=== PATIENT | male | born 1965 | race Caucasian/White ===

== ENCOUNTER 2024-04-24 17:49 | Outpatient (REF) | payer OTHER, SELFPAY ==
--- OUTSIDE RECORDS SUMMARY | 2024-04-24 17:52 | XMS_ITS | Encounter Summary ---
Author Organization [employer] Address [address] [facility] 7[address] [place] [address] Care Team Providers Care Medical Doctor Nuclear Medicine Name Role Phone Alix Diaz Primary Care Provider [phone] Reason for Visit * Reason Onset Date Comments Results 04/23/2024 Appointment Request 04/23/2024 Encounter Details Date Type Department Care Team ([facility] st Contact Info) Description 04/23/2024 Telephone [facility] [address] [place] [address] Alix Diaz ANP [address] [place] [address] Results; Appointment Request Social History Tobacco Use Types Packs/Day Years Used Date Smoking Tobacco: Former Cigarettes Smokeless Tobacco: Never Comments:Stopped smoking 3 y rs ago Alcohol Use Standard Drinks/Week Comments Not Asked 0 (1 standard drink = 0.6 oz pur e alcohol) Depression Answer Date Recorded Patient Health Questionnaire-9 Score 2 06/06/2023 Patient Health Questionnaire-9 Score 2 06/06/2023 Last PHQ-9: Questionnaire Data Not on file 0 06/06/2023 Housing Stability Answer Date Recorded What is your housing situation today? I am not s ure 04/24/[address] you li ve. Do you have problems with any of the following? None of the above 04/24/2024 Food Insecurity Answer Date Recorded Within the past 12 months, y ou worried that your food would run out before you got money to buy more: Sometimes True 2024 Within the past 12 months,th e food you bought just didn't last and you didn't have enough money to get more: Sometimes True 04/24/2024 Transportation Answer Date Recorded In the past 12 months, has l ack of transportation kept you from medical appts, meetings, work or from getting things needed for daily living? I am not sure 04/24/2024 Utilities Answer Date Recorded In the past 12 months, has t he electric, gas, oil or water company threatened to shut off services in your home? I am not sure 04/24/2024 Depression Answer Date Recorded Patient Health Questionnaire-2 Score 1 04/24/2024 Internet Access Answer Date Recorded Internet Access Q1 No 04/24/2024 Internet Access Q2 Not on file 04/24/2024 Sex and Gender Information Value Date Recorded Sex Assigned at Male 01/10/2022 10:16 AM EDT Legal Sex Male 10:16 AM EDT Gender Identity Male 01/10/2022 10:16 AM EDT Sexual Orientation Straight 01/10/2022 10 :16 AM EDT documented as of this encounter Miscellaneous Notes * Telephone Encounter - Kylee Madison RN - 04/23/2024 1:43 PM EST Telephone call returned to pt regarding below message. Pt concerned regarding his microalbumin results (scanned in under media). Also reports bright red blood in stool 2 days ago. Has not happened since then. This has happened before. No dizziness. Abdominal or rectal pain, or blurred vision. Pt has not been seen since November and is diabetic. Overdue for A1C, not on recall. Booked to see PCP tomorrow 04/24/24. Pt agreeable. * Telephone Encounter - Oanh Cunningham - 04/23/2024 1:12 PM EST Tc from pt requesting a call back regarding results (urine albumin-creatine radio) . Received fax from [facility] 04/03. Pt wants to discuss results with pcp. [phone] documented in this encounter Plan of Treatment Not on file documented as of this encounter Visit Diagnoses Not on filedocumented in this encounter Additional Health Concerns Assessment Noted Time PHQ-9 Depression Total Score: 2 06/06/19 24 11:46 AM EDT documented as of this encounter Care Teams Medical Doctor Nuclear Medicine Relationship Specialty Start Date End Date Alix Diaz, ANP [address] [place] [address] PCP - General Family Medicine 11/11/19 documented as of this encounter
--- OUTSIDE RECORDS SUMMARY | 2024-04-24 17:52 | XMS_ITS | Continuity of Care Document ---
Author Organization [facility] Address [address] [facility] [address] [place] [address] Phone Care Team Providers Care Lithographic Proofer Apprentice Name Role Phone Beatrice SAMANO, Jerad Unavailable Unavailable Allergies, Adverse Reactions, Alerts Substance Reaction Status Criticality No Known Allergies Active No Inform ation Medications Medication Instructions Dosage Effective Dates (start - stop) Status Comments Prolensa 0.07 % eye drops instill 1 drop by ophthalmic route every day in operative eye beginning 2 days prior to surgery, then as directed - Active prednisolone acetate 1 % eye drops,suspension instill 1 drop by ophthalmic route 4 times every day in operative eye beginning 2 days prior to surgery, then as directed - Active moxifloxacin 0.5 % eye drops instill 1 drop in the operative eye starting two days before surgery 4 times per day x 1 week and stop. - Active metformin 1,000 mg tablet take 1 tablet by oral route 2 times every day with morning and evening meals 1000 MG - Active Procedures Procedure Date CATARACT SURG W/IOL, 1 STAGE OPHTHALMIC BIOMETRY CATARACT SURG W/IOL, 1 STAGE OPHTHALMIC BIOMETRY OFFICE/OUTPATIENT VISIT, [facility] Advance Directives Directive Yes / No Effective Date File Name No Information Encounters Encounter Description Practice Location Reason(s) For Visit Diagnoses Date Provider Providers Copied on Encounter [facility], [address] [facility], [place], [place], [id number], [place] tel:[phone] [facility] No Information 2 Beatrice Jerad. [address] [place] [address], [facility], . tel: [phone] Referring Provider: Andrae Troncoso, [address] [place] [address], [id number] . tel:[phone] [facility], [address] [place] [address], [id number], tel:[phone] [facility] No Information 1 [place] Jerad. [address] [place] [address], [facility], . tel: [phone] Referring Provider: Andrae Troncoso, [address] [place] [address], [id number] . tel:[phone] OFFICE/OUTPAT IENT VISIT, NEW [facility], [address] [place] [address], [id number], tel:[phone] [facility] Cataract Evaluation per Dr. Zamudio (chief complaint) Combined forms of age-related cataract, bilateralType 2 diabetes mellitus without complication, without long-term current use of insulin 1 Beatrice Jerad. [address] [place] [address], [facility], . tel: [phone] Referring Provider: Andrae Troncoso, [address] [place] [address], [id number] . tel:[phone] [facility], [address] [place] [address], [id number], tel: [phone] [facility] No Information 1 [place] Jerad. [address] [place] [address], [facility], . tel: [phone] Family History Family Member Type Diagnosis Age At Onset Problem Family history of Diabetes m ellitus Problem Family history of Cancer, un known Problem Family history of hypertensi on Problem Family history of Cardiovasc ular disease Payers Payer name Insurance type Covered democrat ID Arash centeno(s) Perfecto OLSON [id number] Social History Type Description Quantity Date Captured [...] BS 94 AMA1c [facility]. Patient speaks no Japanese, she translates for him. Functional Status Date [...]
--- OUTSIDE RECORDS SUMMARY | 2024-04-24 17:52 | XMS_ITS | Encounter Summary ---
Author Organization [email or web address] [facility] Address [address] [facility] 7[address] [place] [address] Care Team Providers Care Electric Bath Attendant Name Role Phone Alix Diaz Primary Care Provider [phone] Reason for Visit * Reason Comments Med Refill Encounter Details Date Type Department Care Team (Late st Contact Info) Description 10/25/2022 Refill [facility] [address] [place] [address] Gustabo Serna FNP MDD (major depressive disorder), recurrent episode, moderate (CMS/HCC) Social History Tobacco Use Types Packs/Day Years Used Date Smoking Tobacco: Never Assessed Depression Answer Date Recorded Patient Health Questionnaire-9 Score 5 10/25/2022 Depression Answer Date Recorded Patient Health Questionnaire-2 Score 0 10/25/2022 Sex and Gender Information Value Date Recorded Sex Assigned at Male 01/10/2022 10:16 AM EDT Legal Sex Male 10:16 AM EDT Gender Identity Male 01/10/2022 10:16 AM EDT Sexual Orientation Straight 01/10/2022 10 :16 AM EDT documented as of this encounter Plan of Treatment Not on file documented as of this encounter Visit Diagnoses Diagnosis MDD (major depressive disorder), recurrent episode, moderate (CMS/HCC) documented in this encounter Additional Health Concerns Assessment Noted Time PHQ-9 Depression Total Score: 5 10/26/19 23 12:48 PM EDT documented as of this encounter Care Teams Electric Bath Attendant Relationship Specialty Start Date End Date Alix Diaz ANP [address] [place] [address] PCP - General Family Medicine 11/11/19 documented as of this encounter
--- OUTSIDE RECORDS SUMMARY | 2024-04-24 17:52 | XMS_ITS | Encounter Summary ---
Author Organization [employer] Address [address] [facility] [address] 7[address] [place] [address] Care Team Providers Care Pick Up Name Role Phone Alix Diaz VAMSI Primary Care Provider [phone] Encounter Details Date Type Department Care Team (Latest Contact Info) Description 04/24/2024 Travel Social History Tobacco Use Types Packs/Day Years [...] documented as of this encounter Care Teams Pick Up Relationship Specialty Start Date End Date Alix Diaz ANP [address] [place] [address] PCP - General Family Medicine 11/11/19 documented as of this encounter
--- OUTSIDE RECORDS SUMMARY | 2024-04-24 17:52 | XMS_ITS | Clinical Summary ---
Author Organization [employer] Address [address] [facility] [address] [place] [address] Care Team Providers Care Food And Beverage Associate Name Role Phone Alix Diaz VAMSI Primary Care Provider Allergies Active Allergy Reactions Criticality Noted Date Comments Ranitidine 04/04/2019 Trazodone Itching 06/16/2021 Medications latanoprost (Xalatan) 0.005 % ophthalmic solutionIndicati ons:Allergic conjunctivitis, unspecified laterality Administer 1 drop into affected eye(s) in the morning. 2.5 mL 5 022 Active TRUEplus Lancets 33G miscIndications: Hyperglycemia, unspecified TEST BLOOD SUGAR THREE TIMES DAILY 100 each 11 023 Active sildenafil (Viagra) 50 MG tabletIndication s:Vasculogenic erectile dysfunction, unspecified vasculogenic erectile dysfunction type Take 1 tablet (50 mg) by mouth Once daily as needed for erectile dysfunction. 20 tablet 1 024 Active Alcohol Swabs (Alcohol Prep) 70 % padsIndications: Type 2 diabetes mellitus with hyperglycemia, with long-term current use of insulin (CMS/HCC) USE DIRECTED 100 each 024 Active doxepin (SINEquan) 150 MG capsule Take 1 capsule (150 mg) by mouth at bedtime. 90 capsule 3 024 Active QUEtiapine (SEROquel) 100 MG tabletIndication s:MDD (major depressive disorder), recurrent episode, moderate (CMS/HCC) Take 1 tablet (100 mg) by mouth at bedtime. 90 tablet 3 024 Active FREESTYLE LITE test stripIndications :IFG (impaired fasting glucose) TEST BLOOD SUGAR THREE TIMES DAILY 100 strip 11 024 Active hydroCHLOROthiaz yolanda (HYDRODiuril) 25 MG tablet TAKE 1 TABLET BY MOUTH EVERY MORNING 90 tablet 3 024 Active lisinopril 40 MG tablet TAKE 1 TABLET BY MOUTH EVERY EVENING 90 tablet 3 024 Active atorvastatin (Lipitor) 10 MG tabletIndication s:Uncontrolled type 2 diabetes mellitus with hyperglycemia (CMS/HCC) Take 1 tablet (10 mg) by mouth at bedtime. 90 tablet 3 024 2024 Active Blood Pressure kitIndications:P rimary hypertension 1 each 2 times daily. 1 kit 024 2024 Active amLODIPine (Norvasc) 5 MG tabletIndication s:Benign essential HTN Take 1 tablet (5 mg) by mouth Once per day. 90 tablet 1 024 Active Multiple Vitamin (Multivitamin) tablet TAKE 1 TABLET BY MOUTH EVERY MORNING WITH FOOD 90 tablet 1 024 Active thiamine (Vitamin B-1) 100 MG tabletIndication s:Alcohol liver damage (CMS/HCC) Take 1 tablet (100 mg) by mouth in the morning. 90 tablet 1 024 Active aspirin (Aspirin Adult Low Strength) 81 MG EC tabletIndication s:Cardiovascular event risk Take 1 tablet (81 mg) by mouth at bedtime. 90 tablet 1 024 Active folic acid (Folvite) 1 MG tabletIndication s:Alcohol liver damage (CMS/HCC) Take 1 tablet (1,000 mcg) by mouth in the morning. 90 tablet 1 024 Active loratadine (Claritin) 10 MG tabletIndication s:Environmental and seasonal allergies Take 1 tablet (10 mg) by mouth at bedtime. 90 tablet 1 024 Active omeprazole (PriLOSEC) [address] capsuleIndicatio ns:Gastroesophag eal reflux disease, unspecified whether esophagitis present TAKE 1 CAPSULE BY MOUTH AT BEDTIME 90 capsule 3 024 Active cholecalciferol (D3-1000) 25 MCG (1000 UT) capsuleIndicatio ns:Vitamin D deficiency TAKE 1 CAPSULE BY MOUTH EVERY EVENING 90 capsule 024 Active metFORMIN XR (Glucophage-XR) 500 MG 24 hr tabletIndication s:Type 2 diabetes mellitus with hyperlipidemia (CMS/HCC) (CMS/HCC) TAKE 1 TABLET BY MOUTH TWICE DAILY IN THE MORNING AND IN THE EVENING WITH FOOD 180 tablet 024 Active Tresiba FlexTouch 100 UNIT/ML injectionIndicat ions:Type 2 diabetes mellitus with hyperlipidemia (CMS/HCC) (CMS/HCC) INJECT 60 UNITS SUBCUTANEOUSLY EVERY MORNING 15 mL 2 025 Active NovoLOG FLEXPEN 100 UNIT/ML penIndications:U ncontrolled type 2 diabetes mellitus with hyperglycemia (CMS/HCC) INJECT 30 UNITS SUBCUTANEOUSLY BEFORE BREAKFAST AND WITH DINNER 30 mL 2 Active Easy Touch Pen [place] 31G X 8 MM miscIndications: Hyperglycemia, unspecified USE DIRECTED TWICE DAILY 100 each 1 025 Active Continuous Glucose Sensor (FreeStyle Bettina 3 Plus Sensor) miscIndications: Uncontrolled type 2 diabetes mellitus with hyperglycemia (CMS/HCC) 1 each every 14 (fourteen) days. (Change every 15 days) 2 each 2 Active polycarbophil (FiberCon) 625 MG tabletIndication s:Constipation, unspecified constipation type Take 1 tablet (625 mg) by mouth Once per day. 30 tablet 025 2025 Active glucose blood (FreeStyle Precision [place] Test) test stripIndications :Uncontrolled type 2 diabetes mellitus with hyperglycemia (CMS/HCC) Use to test blood sugar 5 times daily 100 each 025 2025 Active tamsulosin (Flomax) 0.4 MG 24 hr capsuleIndicatio ns:Gross hematuria Take 1 capsule (0.4 mg) by mouth Once per day. 30 capsule 1 Active Continuous Blood Gluc Cotton Seed Culler (FreeStyle Bettina 2 [place]) deviceIndication s:Uncontrolled type 2 diabetes mellitus with hyperglycemia (CMS/HCC) Scan sensor every 8 hours 1 each 024 2024 Discontinued(T herapy completed) Continuous Blood Gluc Sensor (FreeStyle Bettina 2 Sensor) miscIndications: Uncontrolled type 2 diabetes mellitus with hyperglycemia (CMS/HCC) Apply 1 sensor every 14 days 2 each 024 2024 Discontinued(T herapy completed) glucose blood (FreeStyle Precision [place] Test) test stripIndications :Uncontrolled type 2 diabetes mellitus with hyperglycemia (CMS/HCC) Use to test blood sugar 5 times daily 100 each 024 2024 Discontinued(R eorder (will not trigger notification to Pharmacy)) Easy Touch Pen [place] 31G X 8 MM miscIndications: Hyperglycemia, unspecified USE TWICE DAILY 100 each 1 024 2024 Discontinued insulin aspart (NovoLOG FLEXPEN) 100 UNIT/ML penIndications:U ncontrolled type 2 diabetes mellitus with hyperglycemia (CMS/HCC) Inject 30 Units under the skin with breakfast and with evening meal. 30 mL 2 024 2024 Discontinued Tresiba FlexTouch 100 UNIT/ML injectionIndicat ions:Type 2 diabetes mellitus with hyperlipidemia (CMS/HCC) (CMS/HCC) INJECT 60 UNITS SUBCUTANEOUSLY EVERY MORNING 15 mL 2 024 2024 Discontinued Hospital, Clinic, or Other Facility Administered Medication Ordered Dose Route Frequency Start Date End Date Status Insulin Lispro solution 12 UnitsIndications:Uncontroll ed type 2 diabetes mellitus with hyperglycemia (CMS/HCC) 12 Units SC Once 04/24/2024 04/24/2024 Ended Active Problems Problem Noted Date Diagnosed Date Uncontrolled type 2 diabetes mellitus with hyper glycemia 05/02/2023 MDD (major depressive disord er), recurrent episode, moderate 04/28/2022 Assessment & Plan (06/06/2023 1:11 PM EDT): In remission. Previously with psychotic features. No hallucinations at this time, mood is stable without depression. Continue Seroquel 100 mg at bedtime Continue Doxepin 150 mg at bedtime. Maintain healthy lifestyle. Patient is stable and doing well, and at this time will transition to PCP for further psychiatric medication management. I will be retiring, but if there are questions or concerns over the next few months, patient and/or provider can reach out to me. I have wished him well. He agrees with the plan Assessment & Plan (01/09/2023 9:51 AM EDT): Previously with psychotic features. He now has rare episodes of mild hallucinations, will not attempt to decrease medication further. Continue Seroquel 100 mg at bedtime Continue Doxepin 50 mg to take 1-2 capsules at bedtime. Encouraged to increase exercise and maintain healthy lifestyle. Today 01/09/2023 provider informed pt that I would be retiring within the next year or so, but we would make every effort to ensure smooth transition of care. F/U 2 months. he agrees with the plan. Assessment & Plan (10/25/2022 1:24 PM EDT): In durable remission. Will continue decreasing medication. Now take Seroquel 100 mg at bedtime Continue Doxepin 50 mg to take 1-2 capsules at bedtime. F/U 2-3 months. he agrees with the plan. Assessment & Plan (07/25/2022 3:37 PM EDT): In durable remission. Will now stop morning dose of Seroquel 25 mg. Continue Seroquel 150 mg at bedtime, and Doxepin 50 mg to take 1-2 capsules at bedtime. F/U 3 months. he agrees with the plan. Assessment & Plan (04/28/2022 10:14 AM EST): In durable remission. Happy with current regimen. Continue Doxepin 50 mg to take 1-2 capsules at bedtime, Seroquel 25 mg in am and 150 mg at bedtime. . F/U 2-3 months. he agrees with the plan. Asthma 09/23/2011 Diabetes mellitus type 2, uncomplicated 09/23/19 12 Alcohol dependence 03/13/2004 Hypertension 03/20/2000 Hypercholesterolemia 03/13/1999 Severe recurrent major depression with psychotic features 03/13/1999 Tobacco dependence syndrome 03/13/1999 Encounters Date Type Department Care Team Description 04/24/2024 3:15 PM EST Office Visit [facility] [address] [place] [phone] Alix Diaz ANP Uncontrolled type 2 diabetes mellitus with hyperglycemia (CMS/HCC) (Primary Dx); Constipation, unspecified constipation type; Right flank pain; Screening for colon cancer; Gross hematuria 04/24/2024 Travel 04/24/2024 Telephone [facility] [address] [place] [address] Chanel Carrizales MA chart prep 04/23/2024 Telephone [facility] [address] [place] [address], [place] [phone] Alix Diaz ANP Results; Appointment Request 04/23/2024 Refill [facility] [address] [place] [phone] Joseph, Ally, DESIGN ENGINEERING MANAGER Hyperglycemia, unspecified 04/20/2024 Refill [facility] [address] [place] [phone] Alix Diaz ANP Uncontrolled type 2 diabetes mellitus with hyperglycemia ([facility]) 03/29/2024 Refill [facility] [address] [place] [phone] Alix Diaz ANP Type 2 diabetes mellitus with hyperlipidemia ([facility]) ([facility]) 03/19/2024 Telephone [facility] [address] [place] [phone] Kylee Madison RN Paperwork/Forms 03/04/2024 Refill [facility] [address] [place] [phone] Alix Diaz ANP Type 2 diabetes mellitus with hyperlipidemia ([facility]) ([facility]) 02/15/2024 Orders Only [facility] [address] [place] [phone] Alix Diaz ANP Numbness and tingling of both lower extremities (Primary Dx); Uncontrolled type 2 diabetes mellitus with hyperglycemia ([facility]) 02/03/2024 Refill [facility] [address] [place] [phone] Alix Diaz ANP Gastroesophageal reflux disease, unspecified whether esophagitis present; Vitamin D deficiency 02/02/2024 Telephone [facility] [address] [place] [phone] Alix Diaz ANP Durable Medical Equipment 01/29/2024 Telephone [facility] [address] [place] [phone] Chanel Carrizales MA back brace (Tried calling pt for f/u due to him requesting back brace,pt did not answer LV.) from Last 3 Months Immunizations Name Administration Dates Next Due Hep A, Adult 06/01/2010,07/06/2004,10/13/2003 Hep B, adult 06/01/2010, 8,07/06/2004,02/18,10/13/2003 Influenza, IIV3, injectable 01/21/2010,1 ,01/08/2007,12/28,02/14/2005,02/19/2004 Pfizer Covid-19 Vaccine 12+ 12/01/2023 Pneumococcal Conjugate PCV 20 05/02/2023 Pneumococcal Polysaccharide PPSV23 01/21/2010 TD (adult), 2 Lf tetanus tox oid, preservative free, adsorbed 12/23/2005,02/19/2004 Tdap 12/15/2016 Social History Tobacco Use Types Packs/Day Years Used Date Smoking Tobacco: Former Cigarettes Smokeless Tobacco: Never Tobacco Cessation:Counseling Given: Not Answered Comments:Stopped smoking 3 yrs ago Alcohol Use Standard Drinks/Week Comments Not [...] Orientation Straight 01/10/2022 10 :16 AM EDT Last Filed Vital Signs Vital Sign Reading Time Taken Comments Blood Pressure 157/91 04/24/2024 3:08 PM EST Pulse 121 04/24/2024 3:08 PM EST Temperature 36.1 ??C (96.9 ??F) 04/24/2024 3:08 PM ES T Respiratory Rate 16 04/24/2024 3:08 PM EST Oxygen Saturation 96% 04/24/2024 3:08 PM EST Inhaled Oxygen Concentration - - Weight 107 kg (236 lb) 04/24/2024 3:08 PM EST Height 175.3 cm (5' 9 ) 12/01/2023 2:04 PM EDT Body Mass Index 34.85 12/01/2023 2:04 PM EDT Plan of Treatment Health Maintenance Due Date Last Done Comments CT Colonography 1965 Colonoscopy 1965 Colorectal Cancer Screening 1965 FIT DNA/Cologuard 1965 FIT 1965 FOBT 1965 HIV Screening 1965 Sigmoidoscopy 1965 Diabetes: Foot Exam 08/29/1975 Eye Exam 08/29/1975 Hepatitis C Screening 08/29/1983 Zoster Vaccines (1 of 2) 08/29/2015 Diabetes: Urine Protein Screening 12/24/2020 12/25/2019, 04/03/2019 Lipid Panel 12/24/2020 12/25/2019 Influenza Vaccine (#1) 2023 0, 01/01/2008, 01/08/2007, Additional history exists Diabetes: Hemoglobin A1C 07/22/2024 025, 12/01/2023, 05/02/2023, Additional history exists Alcohol/Substance Use Screening 04/24/2025 04/24/2024 Depression Screening 04/24/2025 04/24/2024, 06/06/19 24 SDOH Screening 04/24/2025 04/24/2024 Tobacco Screening 04/24/2025 04/24/2024 DTaP/Tdap/Td Vaccines (2 - Td or Tdap) 12/15/2026 12/15/2016, 12/23/2005, 02/19/2004 RSV Patients and Patients Aged 60 years or older (1 - 1-dose 75+ series) 2040 Hepatitis A Vaccines Completed 06/01/2010, 07/06/2004, 10/13/2003 Hepatitis B Vaccines Completed 06/01/2010, 09/18/2007, 07/06/2004, Additional history exists Pneumococcal Vaccine: 50+ Years Completed 05/02/2023, 01/21/2010 COVID-19 Vaccine Completed 12/01/2023, , 10/06/2020 HIB Vaccines Aged Out No longer eligi ble based on patient's age to complete this topic HPV Vaccines Aged Out No longer eligi ble based on patient's age to complete this topic IPV Vaccines Aged Out No longer eligi ble based on patient's age to complete this topic Meningococcal Vaccine Aged Out No chris verenice eligible based on patient's age to complete this topic RSV under 20 months Aged Out No longe r eligible based on patient's age to complete this topic Rotavirus Vaccines Aged Out No longer eligible based on patient's age to complete this topic Procedures Procedure Name Priority Date/Time Associated Diagnosis Comments POCT URINALYSIS DIPSTICK Routine 04/24/2024 3:56 PM EST Uncontrolled type 2 diabetes mellitus with hyperglycemia (CMS/HCC) POCT GLYCATED HEMOGLOBIN, TOTAL Routine 04/24/2024 3:22 PM EST Uncontrolled type 2 diabetes mellitus with hyperglycemia (CMS/HCC) POCT GLUCOSE Routine 04/24/2024 3:21 PM EST Uncontrolled type 2 diabetes mellitus with hyperglycemia (CMS/HCC) ALBUMIN, RANDOM URINE W/CREATININE Routine 12/25/2019 8:52 AM EDT LIPID PANEL, STANDARD Routine 12/25/2019 8:52 AM EDT from Last 3 Months or Most Recently Relevant to Health Maintenance Results * (ABNORMAL) POCT Urinalysis (04/24/2024 3:56 PM EST) Color, UA Yellow Clarity, UA Clear Glucose, UA Trace Comment:500 mg Bilirubin, UA Negative Ketones, UA Negative Spec Grav, UA 1.025 Blood, UA Positive(A) Negative, None Detected Comment:trace intact pH, UA 7.0 Protein, UA Trace Comment:100 mg Urobilinogen, UA 2.0 Leukocytes, UA Negative Negative, Rare, Trace Nitrite, UA Negative Negative, None Detected Appearance, UA clear QC Media Lot # [id number] Lot# Expiration Date Urine 04/24/2024 3:56 PM EST [facility] ANP POINT OF CARE TEST ENTER/EDIT OR DERABLES Final Result * (ABNORMAL) POCT HGB A1C (04/24/2024 3:22 PM EST) Pathologist [facility] Hemoglobin A1C 10.3(A) 4.0 - 6.0 % QC Media Lot # [id number] Lot# Expiration Date Blood 04/24/2024 3:2 2 PM EST [facility] ANP POINT OF CARE TEST ENTER/EDIT OR DERABLES Final Result * (ABNORMAL) POCT Glucose (04/24/2024 3:21 PM EST) [facility] Glucose Blood, POC 500(A) 60 - 200 mg/dL QC Media Lot # [id number] Lot# Expiration Date 025 Blood Capillary blood specimen / Unknown 04/24/2024 3:21 PM EST [facility] ANP POINT OF CARE TEST ENTER/EDIT OR DERABLES Final Result * ALBUMIN, RANDOM URINE W/CREATININE (12/25/2019 8:52 AM EDT) Pathologist [facility] Creatinine, Urine 169 20 - 320 mg/dL [facility] Microalbumin Urine 3.2 See Note: mg/dL [facility] Comment: Reference Range: ?? Reference Range Not established Microalb/Creat Ratio 19 <30 mcg/mg creat [facility] Comment: ?? The ADA defines abnormalities in albumin excretion as follows: ?? Category ? Result (mcg/mg creatinine) ?? Normal ?<30 Microalbuminuria ? 30-299 ?? Clinical albuminuria ?? > OR = 300 ?? The ADA recommends that at least two of three specimens collected within a 3-6 month period be abnormal before considering a patient to be within a diagnostic category. 12/25/2019 8:52 AM EDT us Gustabo Nashjim DESIGN ENGINEERING MANAGER LAB URINE ORDERABLES Final Res ult [facility] [address] * (ABNORMAL) LIPID PANEL, STANDARD (12/25/2019 8:52 AM EDT) Non-HDL Cholesterol 108 <130 mg/dL (calc) [facility] Comment: For patients with diabetes plus 1 major ASCVD risk ?? factor, treating to a non-HDL-C goal of <100 mg/dL ?? (LDL-C of <70 mg/dL) is considered a therapeutic ?? option. Triglycerides 162(H) <150 mg/dL [facility] HDL Cholesterol 44 > OR = 40 mg/dL [facility] Chol/HDLC Ratio 3.5 <5.0 (calc) [facility] Triglycerides 162(H) <150 mg/dL [facility] Cholesterol, Total 152 <200 mg/dL [facility] LDL Cholesterol 82 mg/dL (calc) [facility] Comment: Reference range: <100 ?? Desirable range <100 mg/dL for primary prevention; ?? <70 mg/dL for patients with CHD or diabetic patients ?? with > or = 2 CHD risk factors. ?? LDL-C is now calculated using the Hallie ?? calculation, which is a validated novel method providing ?? better accuracy than the Friedewald equation in the ?? estimation of LDL-C. ?? Juan Manuel QUINTERO et al. MANISHA. 2013;310(19): 5082-4573 ?? (http://education.Leeo/faq/JEC610) HDL Cholesterol 44 > OR = 40 mg/dL [facility] Non-HDL Cholesterol 108 <130 mg/dL (calc) [facility] Comment: For patients with diabetes plus 1 major ASCVD risk ?? factor, treating to a non-HDL-C goal of <100 mg/dL ?? (LDL-C of <70 mg/dL) is considered a therapeutic ?? option. LDL Cholesterol 82 mg/dL (calc) [facility] Comment: Reference range: <100 ?? Desirable range <100 mg/dL for primary prevention; ?? <70 mg/dL for patients with CHD or diabetic patients ?? with > or = 2 CHD risk factors. ?? LDL-C is now calculated using the Hallie ?? calculation, which is a validated novel method providing ?? better accuracy than the Friedewald equation in the ?? estimation of LDL-C. ?? Juan Manuel QUINTERO et al. MANISHA. 2013;310(19): 8498-0358 ?? (http://RiffRaff.[employer].Lala/faq/UDL946) Cholesterol, Total 152 <200 mg/dL [facility] Chol/HDLC Ratio 3.5 <5.0 (calc) [facility] 12/25/2019 8:52 AM EDT us Gustabo Serna [facility] LAB BLOOD ORDERABLES Final Res ult [facility] [address] from Last 3 Months or Most Recently Relevant to Health Maintenance Insurance [facility] Care Teams Food And Beverage Associate Relationship Specialty Start Date End Date Alix Diaz ANP [address] [place] [phone] PCP - General Family Medicine 11/11/19
--- OUTSIDE RECORDS SUMMARY | 2024-04-24 17:52 | XMS_ITS | Encounter Summary ---
Author Organization [employer] Address [address] [facility] [address] [place] [address] Care Team Providers Care Mortising Machine Operator Name Role Phone Alix Diaz Primary Care Provider [phone] Encounter Details Date Type Department Care Team (Late st Contact Info) Description 08/10/2022 Orders Only [facility] [address] [place] [address] April Zaman LPN Social History Tobacco Use Types Packs/Day Years Used Date Smoking Tobacco: Never Assessed Sex and Gender Information Value Date Recorded [...] Assessment Noted Time PHQ-9 Depression Total Score: 4 07/26/19 23 2:48 PM EDT documented as of this encounter Care Teams Mortising Machine Operator Relationship Specialty Start Date End Date Alix Diaz ANP [address] [place] [address] PCP - General Family Medicine 11/11/19 documented as of this encounter
--- OUTSIDE RECORDS SUMMARY | 2024-04-24 17:52 | XMS_ITS | Encounter Summary ---
Author Organization [employer] Address [address] [facility] [address] [place] [address] Care Team Providers Care Nurse Plastics Name Role Phone Joe Alix AGUSTIN Primary Care Provider [phone] Reason for Visit * Reason Onset Date Comments chart prep 04/24/2024 Encounter Details Date Type Department Care Team (Late st Contact Info) Description 04/24/2024 Telephone [facility] [address] [place], [place] [phone] Chanel Carrizales MA chart prep Social History Tobacco Use Types Packs/Day Years [...] encounter Miscellaneous Notes * Telephone Encounter - Chanel Carrizales MA - 04/24/2024 10:21 AM EST Chart Prep Labs: not done Images: not applicable Vaccines due: yes Referrals: unknown Screenings: STI screening Overdue care gaps: Sbirt, SDOH, PHQ-9 documented in this encounter Plan of Treatment Not on file documented as of this encounter Visit Diagnoses Not on filedocumented in this encounter Additional Health Concerns Assessment Noted Time PHQ-9 Depression Total Score: 2 06/06/19 24 11:46 AM EDT documented as of this encounter Care Teams Nurse Plastics Relationship Specialty Start Date End Date Alix Diaz ANP [address] [place] [phone] PCP - General Family Medicine 11/11/19 documented as of this encounter
--- OUTSIDE RECORDS SUMMARY | 2024-04-24 17:52 | XMS_ITS | Encounter Summary ---
Author Organization [employer] Address [address] [facility] [address] [place] [address] Care Team Providers Care Slag Expander Name Role Phone Alix Diaz Primary Care Provider [phone] Encounter Details Date Type Department Care Team (Late st Contact Info) Description 05/04/2022 Orders Only [facility] [address] [place] [address] Sangita Palomino LPN Social History Tobacco Use Types Packs/Day [...] Noted Time PHQ-9 Depression Total Score: 5 04/28/19 23 9:47 AM EST documented as of this encounter Care Teams Slag Expander Relationship Specialty Start Date End Date Alix Diaz ANP [address] [place] [address] PCP - General Family Medicine 11/11/19 documented as of this encounter
--- OUTSIDE RECORDS SUMMARY | 2024-04-24 17:52 | XMS_ITS | Encounter Summary ---
Author Organization [employer] Address [address] [facility] [address] [place] [address] Care Team Providers Care Magnetic Doctor Name Role Phone Alix Diaz Primary Care Provider Encounter Details Date Type Department Care Team (Late st Contact Info) Description 03/22/2022 Orders Only [facility] [address] [place], [place] [phone] Sangita Palomino LPN Social History Tobacco Use [...] Diagnoses Not on filedocumented in this encounter Care Teams Magnetic Doctor Relationship Specialty Start Date End Date Alix Diaz ANP [address] [place] [address] PCP - General Family Medicine 11/11/19 documented as of this encounter
--- OUTSIDE RECORDS SUMMARY | 2024-04-24 17:52 | XMS_ITS | Encounter Summary ---
Author Organization [employer] Address [address] [facility] 7t [place] [address] Care Team Providers Care Armature Varnisher Name Role Phone Alix Diaz Primary Care Provider [phone] Reason for Visit * Reason Comments Med Refill Encounter Details Date Type Department Care Team ([facility] st Contact Info) Description 01/15/2024 Refill [facility] [address] [place], [place] [phone] Alix Diaz ANP [address] [place], [place] [phone] Alcohol liver damage (CMS/HCC) Social History Tobacco Use Types Packs/Day [...] What is your housing situation today? I have archie rosario 04/24/[address] you li ve. Do you have problems with any of the following? None of the above 04/24/2023 Food Insecurity Answer Date Recorded Within the past 12 months, y ou worried that your food would run out before you got money to buy more: Never True 04/24/2023 Within the past 12 months,th e food you bought just didn't last and you didn't have enough money to get more: Never True 02/2024 Transportation Answer Date Recorded In the past 12 months, has l ack of transportation kept you from medical appts, meetings, work or from getting things needed for daily living? Yes, it has kept me from medical appointments or getting medications. 04/24/2023 Utilities Answer Date Recorded In the past 12 months, has t he electric, gas, oil or water company threatened to shut off services in your home? No 04/24/2023 Depression Answer Date Recorded Patient Health Questionnaire-2 Score 0 06/06/2023 Internet Access Answer Date Recorded Internet Access Q1 Yes 11/13/2023 Internet Access Q2 Not on file 11/13/2023 Sex and Gender Information Value Date Recorded Sex Assigned at Male 01/10/2022 10:16 AM EDT Legal Sex Male 10:16 AM EDT Gender Identity Male 01/10/2022 10:16 AM EDT Sexual Orientation Straight 01/10/2022 10 :16 AM EDT documented as of this encounter Plan of Treatment Not on file documented as of this encounter Visit Diagnoses Diagnosis Alcohol liver damage (CMS/HCC) Unspecified alcoholic liver damage documented in this encounter Additional Health Concerns Assessment Noted Time PHQ-9 Depression Total Score: 2 06/06/19 24 11:46 AM EDT documented as of this encounter Care Teams Armature Varnisher Relationship Specialty Start Date End Date Alix Diaz ANP [address] [place] [id number] PCP - General Family Medicine 11/11/19 documented as of this encounter
--- OUTSIDE RECORDS SUMMARY | 2024-04-24 17:52 | XMS_ITS | Encounter Summary ---
Author Organization [email or web address] Address [address] [facility] 7t [place] [address] Care Team Providers Care Speech Language Assistant Name Role Phone Joe Alix AGUSTIN Primary Care Provider [phone] Reason for Visit * Reason Comments Med Refill Encounter Details Date Type Department Care Team ([facility] st Contact Info) Description 04/23/2024 Refill [facility] [address] [place], [place] [phone] Ally RuizPEDROP [address] [place], [place] [phone] Hyperglycemia, unspecified Social History Tobacco Use Types Packs/Day Years [...] as of this encounter Visit Diagnoses Diagnosis Hyperglycemia, unspecified documented in this encounter Additional Health Concerns Assessment Noted Time PHQ-9 Depression Total Score: 2 06/06/19 24 11:46 AM EDT documented as of this encounter Care Teams Speech Language Assistant Relationship Specialty Start Date End Date Alix Diaz ANP [address] [place] [id number] PCP - General Family Medicine 11/11/19 documented as of this encounter
--- OUTSIDE RECORDS SUMMARY | 2024-04-24 17:52 | XMS_ITS | Encounter Summary ---
Author Organization [employer] Address [address] [facility] 7t [place] [address] Care Team Providers Care Regulatory Scientist Name Role Phone Alix Diaz Primary Care Provider [phone] Encounter Details Date Type Department Care Team (Late st Contact Info) Description 01/16/2023 Orders Only [facility] MED & PEDS [address] [place] [address] April Zaman LPN Social History Tobacco Use Types Packs/Day Years Used Date Smoking Tobacco: Never Assessed Depression Answer Date Recorded Patient Health Questionnaire-9 Score 5 01/09/2023 Patient Health Questionnaire-9 Score 5 01/09/2023 Last PHQ-9: Questionnaire Data Not on file 1 Depression Answer Date Recorded Patient Health Questionnaire-2 Score 0 01/09/2023 Sex and Gender Information Value Date Recorded [...] Noted Time PHQ-9 Depression Total Score: 5 01/10/20 23 9:08 AM EDT documented as of this encounter Care Teams Regulatory Scientist Relationship Specialty Start Date End Date Alix Diaz ANP [address] [place] [address] PCP - General Family Medicine 11/11/19 documented as of this encounter
--- OUTSIDE RECORDS SUMMARY | 2024-04-24 17:52 | XMS_ITS | Encounter Summary ---
Author Organization [employer] Address [address] [facility] 7[address] [place] [address] Care Team Providers Care Clinical Review Nurse Name Role Phone Alix Diaz Primary Care Provider [phone] Reason for Visit * Reason Onset Date Comments Appointment Request 06/30/2023 Encounter Details Date Type Department Care Team ([facility] st Contact Info) Description 06/30/2023 Telephone [facility] MEDICINE [address] [place], [place] [phone] Alix Diaz ANP [address] [place] [address] Appointment Request Social History Tobacco Use Types [...] Recorded Patient Health Questionnaire-2 Score 0 06/06/2023 Sex and Gender Information Value Date Recorded Sex Assigned at Male 01/10/2022 10:16 AM EDT Legal Sex Male 10:16 AM EDT Gender Identity Male 01/10/2022 10:16 AM EDT Sexual Orientation Straight 01/10/2022 10 :16 AM EDT documented as of this encounter Miscellaneous Notes * Telephone Encounter - Travis Gregorio - 06/30/2023 1:39 PM EDT Tc from patient calling to reschedule Follow-up appt from 06/22 physician underwriter did attempt to reschedule however patient stated need to be in the afternoon documented in this encounter Plan of Treatment Not on file documented as of this encounter Visit Diagnoses Not on filedocumented in this encounter Additional Health Concerns Assessment Noted Time PHQ-9 Depression Total Score: 2 06/06/19 24 11:46 AM EDT documented as of this encounter Care Teams Clinical Review Nurse Relationship Specialty Start Date End Date Alix Diaz ANP [address] [place] [address] PCP - General Family Medicine 11/11/19 documented as of this encounter
--- OUTSIDE RECORDS SUMMARY | 2024-04-24 17:52 | XMS_ITS | Encounter Summary ---
Author Organization [employer] Address [address] [facility] 7t [place] [address] Care Team Providers Care Building Serviceman Name Role Phone Alix Diaz Primary Care Provider [phone] Reason for Visit * Reason Comments Med Refill Encounter Details Date Type Department Care Team ([facility] st Contact Info) Description 03/29/2024 Refill [facility]BILE [facility]INE CLIN[facility] [address] [place], [place] [phone] Alix Diaz ANP [address] [place], [place] [phone] Type 2 diabetes mellitus with hyperlipidemia ([facility]/HCC) ([facility]) Social History Tobacco Use Types Packs/Day Years [...] as of this encounter Visit Diagnoses Diagnosis Type 2 diabetes mellitus with hyperlipidemia (CMS/HCC) (CMS/HCC) documented in this encounter Additional Health Concerns Assessment Noted Time PHQ-9 Depression Total Score: 2 06/06/19 24 11:46 AM EDT documented as of this encounter Care Teams Building Serviceman Relationship Specialty Start Date End Date Alix Diaz ANP [address] [place] [address] PCP - General Family Medicine 11/11/19 documented as of this encounter
--- OUTSIDE RECORDS SUMMARY | 2024-04-24 17:52 | XMS_ITS | Encounter Summary ---
Author Organization [employer] Address [address] [facility] 7t [place] [address] Care Team Providers Care Ammunition And Explosives Handler Name Role Phone Alix Diaz Primary Care Provider [phone] Reason for Visit * Reason Comments Med Refill Encounter Details Date Type Department Care Team ([facility] st Contact Info) Description 04/20/2024 Refill [facility] MEDICINE [address] [place], [place] [phone] Alix Diaz ANP [address] [place], [place] [phone] Uncontrolled type 2 diabetes mellitus with hyperglycemia (CMS/[facility]) Social History Tobacco Use Types Packs/Day Years [...] as of this encounter Visit Diagnoses Diagnosis Uncontrolled type 2 diabetes mellitus with hyperglycemia (CMS/HCC) documented in this encounter Additional Health Concerns Assessment Noted Time PHQ-9 Depression Total Score: 2 06/06/19 24 11:46 AM EDT documented as of this encounter Care Teams Ammunition And Explosives Handler Relationship Specialty Start Date End Date Alix Diaz ANP [address] [place] [address] PCP - General Family Medicine 11/11/19 documented as of this encounter
--- OUTSIDE RECORDS SUMMARY | 2024-04-24 17:52 | XMS_ITS | Encounter Summary ---
Author Organization [employer] Address [address] [facility] [address]t [place] [address] Care Team Providers Care Building Drafter Name Role Phone Alix Diaz Primary Care Provider [phone] Reason for Visit * Reason Comments Follow-up Encounter Details Date Type Department Care Team (Latest Contact Info) Description 04/24/2024 3:15 PM EST Office Visit [facility] MEDICINE [address] [place], [place] [phone] Alix Diaz ANP [address] [place] [address] Uncontrolled type 2 diabetes mellitus with hyperglycemia (CMS/HCC) (Primary Dx); Constipation, unspecified constipation type; Right flank pain; Screening for colon cancer; Gross hematuria Social History Tobacco Use Types Packs/Day Years [...] AM EDT documented as of this encounter Last Filed Vital Signs Vital Sign Reading Time Taken Comments Blood Pressure 157/91 04/24/2024 3:08 PM EST Pulse 121 04/24/2024 3:08 PM EST Temperature 36.1 ??C (96.9 ??F) 04/24/2024 3:08 PM ES T Respiratory Rate 16 04/24/2024 3:08 PM EST Oxygen Saturation 96% 04/24/2024 3:08 PM EST Inhaled Oxygen Concentration - - Weight 107 kg (236 lb) 04/24/2024 3:08 PM EST Height - - Body Mass Index 34.85 12/01/2023 2:04 PM EDT documented in this encounter Plan of Treatment Scheduled Orders Name Type Priority Associated Diagnoses Orde r Schedule Lipid Panel, Standard Lab Routine Uncontrolled type 2 diabetes mellitus with hyperglycemia (CMS/HCC) Expected: 04/24/2024 (Approximate), Expires: 04/24/2025 Basic Metabolic Panel Lab Routine Uncontrolled type 2 diabetes mellitus with hyperglycemia (CMS/HCC) Expected: 04/24/2024 (Approximate), Expires: 04/24/2025 Urinalysis, Complete, with Reflex to Culture Lab Routine Right flank pain Ordered: 04/24/2024 Cologuard?? colon cancer screening Lab Routine Screening for colon cancer Ordered: 04/24/2024 documented as of this encounter Procedures Procedure Name Priority Date/Time Associated Diagnosis Comments POCT URINALYSIS DIPSTICK Routine 04/24/2024 3:56 PM EST Uncontrolled type 2 diabetes mellitus with hyperglycemia (CMS/HCC) POCT GLYCATED HEMOGLOBIN, TOTAL Routine 04/24/2024 3:22 PM EST Uncontrolled type 2 diabetes mellitus with hyperglycemia (CMS/HCC) POCT GLUCOSE Routine 04/24/2024 3:21 PM EST Uncontrolled type 2 diabetes mellitus with hyperglycemia (CMS/[facility]) documented in this encounter Results * (ABNORMAL) POCT Urinalysis (04/24/2024 3:56 [...] Expiration Date Urine 04/24/2024 3:56 PM EST Alix AGUSTIN POINT OF CARE TEST ENTER/EDIT OR DERABLES Final Result * (ABNORMAL) POCT HGB A1C (04/24/2024 3:22 PM EST) Hemoglobin A1C 10.3(A) 4.0 - 6.0 % QC Media Lot # [id number] Lot# Expiration Date Blood 04/24/2024 3:22 PM EST [facility] Diaz ANP POINT OF CARE TEST ENTER/EDIT OR DERABLES Final Result * (ABNORMAL) POCT Glucose (04/24/2024 3:21 PM EST) Glucose Blood, POC 500(A) 60 - 200 mg/dL QC Media Lot # [id number] Lot# Expiration Date [id number] Blood Capillary blood specimen / Unknown 04/24/2024 3:21 PM EST Alix AGUSTIN POINT OF CARE TEST ENTER/EDIT OR DERABLES Final Result documented in this encounter Visit Diagnoses Diagnosis Uncontrolled type 2 diabetes mellitus with hyperglycemia (CMS/HCC)- Primary Constipation, unspecified constipation type Right flank pain Abdominal pain, unspecified site Screening for colon cancer Special screening for malignant neoplasms, colon Gross hematuria documented in this encounter Administered Medications Inactive Administered Medications - up to 3 most recent administrations Medication Order MAR Action Action Date Dose Rate Site Insulin Lispro solution 12 Units 12 Units, Subcutaneous, Once, On Mon04/24/24 at 1545, For 1 doseIndications:Uncontrol led type 2 diabetes mellitus with hyperglycemia (CMS/HCC) Given 04/24/2024 3:45 PM EST 12 Units Left Upper Arm (Back) documented in this encounter Additional Health Concerns Assessment Noted Time PHQ-9 Depression Total Score: 2 06/06/19 24 11:46 AM EDT documented as of this encounter Care Teams Building Drafter Relationship Specialty Start Date End Date Alix Diaz ANP [address] [place] [address] PCP - General Family Medicine 11/11/19 documented as of this encounter
[2024-04-24 18:07] LABS: Appearance Urine Clear; Color Urine Yellow; Glucose Urine UA >=1000 mg/dL (Negative); Leukocyte Esterase Urine Negative (Negative); Nitrite Urine Negative (Negative); PH 7.5 (5.0-9.0); Specific Gravity - Urine >= 1.030 (1.005-1.025); UMIC TRIGGER UACC YES; Urine Blood Trace (Negative); Urine Ketones Negative (Negative); Urine Protein 30 (1+) mg/dL (Neg-Trace)
[2024-04-24 18:12] LABS: Bacteria Urine None Seen (None Seen); Hyaline Casts Urine 0-2 /LPF (0-2); Squamous Epithelial Cell Urine 0-2 /HPF (0-2); WBC Urine 0-5 /HPF (0-5)
== END 2024-04-24 17:50 | disposition home or self-care (01) ==
LOC: HO.HHCLNP 17:49
PROVIDERS: Visit Provider Nurse Practitioner Primary Care
DX: R10.9 Unspecified abdominal pain (principal)
CPT/HCPCS: 81001

== ENCOUNTER 2025-01-24 14:26 | Outpatient (REF) | payer OTHER, SELFPAY ==
--- OUTSIDE RECORDS SUMMARY | 2021-03-29 02:45 | XMS_ITS | Continuity of Care Document ---
Author Organization [facility] Address [address] [facility] [address] [place] [address] Phone Care Team Providers Care Bell Spinner Name Role Phone Beatrice SAMANO, Jerad Unavailable Unavailable Allergies, Adverse Reactions, Alerts Substance Reaction Status Criticality No Known Allergies Active No Inform ation Medications Medication Instructions Dosage Effective Dates (start - stop) Status Comments moxifloxacin 0.5 % eye drops instill 1 drop in the operative eye starting two days before surgery 4 times per day x 1 week and stop. - Active prednisolone acetate 1 % eye drops,suspension instill 1 drop by ophthalmic route 4 times every day in operative eye beginning 2 days prior to surgery, then as directed - Active Prolensa 0.07 % eye drops instill 1 drop by ophthalmic route every day in operative eye beginning 2 days prior to surgery, then as directed - Active metformin 1,000 mg tablet take 1 tablet by oral route 2 times every day with morning and evening meals 1000 MG - Active Procedures Procedure Date CATARACT SURG W/IOL, 1 STAGE OPHTHALMIC BIOMETRY CATARACT SURG W/IOL, 1 STAGE OPHTHALMIC BIOMETRY OFFICE/OUTPATIENT VISIT, [facility] Advance Directives Directive Yes / No Effective Date File Name No Information Encounters Encounter Description Practice Location Reason(s) For Visit Diagnoses Date Provider Providers Copied on Encounter [facility], [address] [facility], [place], [place], [id number], [place] tel:[phone] [facility] No Information 2 Beatrice Jerad. [address] [place] [address], [facility], . tel: [phone] Referring Provider: Andrae Troncoso, [address] [place] [address], [id number] . tel:[phone] [facility], [address] [place] [address], [id number], tel:[phone] [facility] No Information 1 [place] Jerad. [address] [place] [address], [facility], . tel: [phone] Referring Provider: Andrae Troncoso, [address] [place] [address], [id number] . tel:[phone] OFFICE/OUTPAT IENT VISIT, NEW [facility], [address] [place] [address], [id number], tel:[phone] [facility] Cataract Evaluation per Dr. Zamudio (chief complaint) Combined forms of age-related cataract, bilateralType 2 diabetes mellitus without complication, without long-term current use of insulin 1 Beatrice Jerad. [address] [place] [address], [facility], . tel: [phone] Referring Provider: Andrae Troncoso, [address] [place] [address], [id number] . tel:[phone] [facility], [address] [place] [address], [id number], tel: [phone] [facility] No Information 1 [place] Jerad. [address] [place] [address], [facility], . tel: [phone] Family History Family Member Type Diagnosis Age At Onset Problem Family history of Diabetes m ellitus Problem Family history of Cancer, un known Problem Family history of hypertensi on Problem Family history of Cardiovasc ular disease Payers Payer name Insurance type Covered alliance party ID Arash centeno(s) Perfecto OLSON [id number] Social History Type Description Quantity Date Captured Comments Sex Male Smoking Status No Information Chief Complaint And Reason For Visit No Information Reason For Referral Reason For Referral No Information History Of Present Illness Encounter Date Complaint History Of Prese nt Illness Cataract Evaluation per Dr. Zamudio The 55 year old male presents for evaluation of Cataract Evaluation per Dr. Zamudio in the right eye and left eye. It started about 4 month(s) ago. The onset was gradual. The symptom is constant. The condition is moderate. Functional Impairment: blurry va while watching tv and reading signs. Patient has a decrease in vision at distance and near. While reading up close. Patient has to bring his cell phone really close to be able to read it. Patient has stopped driving due to vision being so poor. Patient has a lot of glare from car lights and street lights. Patient also mentions his OS felt like something fell in his eye and was floating around about 8 months ago, he can wipe his eye and it would clear up. BS 94 AMA1c [facility]. Patient speaks no Nepali, she translates for him. Functional Status Date Functional Assessmen t No Information Instructions Date Instruction Additional Infor ruby Impression/Plan - Di scussed that no retinopathy is seen on today's exam. Need for yearly screening to detect early changes stressed. A report of today's exam will be sent to the patient's PCP. Related to Type 2 diabetes mellitus without complication, without long-term current use of insulin Impression/Plan - Ca taracts account for the patient's complaints. Discussed all risks, benefits, procedures and recovery. Patient understands changing glasses will not improve vision. Patient desires to have surgery, recommend phacoemulsification with intraocular lens right eye. *Comanage with Dr. Troncoso/Lizz* Related to Combined forms of age-related cataract, bilateral Assessments Type Assessment Date No Information Patient Care Teams Name Effective Dates (start - stop) Status Members No Information
--- OUTSIDE RECORDS SUMMARY | 2021-03-29 02:45 | XMS_ITS | Continuity of Care Document ---
Author Organization [facility] Address [address] [facility] [address] [place] [address] Phone Care Team Providers Care Security Investigator Name Role Phone Beatrice SAMANO, Jerad Unavailable [...] W/IOL, 1 STAGE OPHTHALMIC BIOMETRY OFFICE/OUTPATIENT VISIT, [facility] Advance Directives Directive Yes / No Effective Date File Name No Information Encounters Encounter Description Practice Location Reason(s) For Visit Diagnoses Date Provider Providers Copied on Encounter [facility], [address] [facility], [place], [place], [id number], [place] tel:[phone] [facility] No Information 2 Beatrice Jerad. [address] [place] [address], [facility], . tel: [phone] Referring Provider: Andrae Troncoso, [address] [place] [address], [id number] . tel:[phone] [facility], [address] [place] [address], [id number], tel:[phone] [facility] No Information 1 [place] Jerad. [address] [place] [address], [facility], . tel: [phone] Referring Provider: Andrae Troncoso, [address] [place] [address], [id number] . tel:[phone] OFFICE/OUTPAT IENT VISIT, NEW [facility], [address] [place] [address], [id number], tel:[phone] [facility] Cataract Evaluation per Dr. Zamudio (chief complaint) Combined forms of age-related cataract, bilateralType 2 diabetes mellitus without complication, without long-term current use of insulin 1 Beatrice Jerad. [address] [place] [address], [facility], . tel: [phone] Referring Provider: Andrae Troncoso, [address] [place] [address], [id number] . tel:[phone] [facility], [address] [place] [address], [id number], tel: [phone] [facility] No Information 1 [place] Jerad. [address] [place] [address], [facility], . tel: [phone] Family History Family Member Type Diagnosis Age At Onset Problem Family history of Diabetes m ellitus Problem Family history of Cancer, un known Problem Family history of hypertensi on Problem Family history of Cardiovasc ular disease Payers Payer name Insurance type Covered democrat ID Arash centeno(s) Perfecto OLSON [id number] Social History Type Description Quantity Date Captured [...] AMA1c [facility]. Patient speaks no Romanian, she translates for him. Functional Status Date [...]
--- OUTSIDE RECORDS SUMMARY | 2021-03-29 02:45 | XMS_ITS | Continuity of Care Document ---
Author Organization [facility] Address [address] [facility] [address] [place] [address] Phone Care Team Providers Care Stone Carriage Operator Name Role Phone Beatrice SAMANO, Jerad Unavailable [...] W/IOL, 1 STAGE OPHTHALMIC BIOMETRY OFFICE/OUTPATIENT VISIT, [facility] Advance Directives Directive Yes / No Effective Date File Name No Information Encounters Encounter Description Practice Location Reason(s) For Visit Diagnoses Date Provider Providers Copied on Encounter [facility], [address] [facility], [place], [place], [id number], [place] tel:[phone] [facility] No Information 2 Beatrice Jerad. [address] [place] [address], [facility], . tel: [phone] Referring Provider: Andrae Troncoso, [address] [place] [address], [id number] . tel:[phone] [facility], [address] [place] [address], [id number], tel:[phone] [facility] No Information 1 [place] Jerad. [address] [place] [address], [facility], . tel: [phone] Referring Provider: Andrae Troncoso, [address] [place] [address], [id number] . tel:[phone] OFFICE/OUTPAT IENT VISIT, NEW [facility], [address] [place] [address], [id number], tel:[phone] [facility] Cataract Evaluation per Dr. Zamudio (chief complaint) Combined forms of age-related cataract, bilateralType 2 diabetes mellitus without complication, without long-term current use of insulin 1 Beatrice Jerad. [address] [place] [address], [facility], . tel: [phone] Referring Provider: Andrae Troncoso, [address] [place] [address], [id number] . tel:[phone] [facility], [address] [place] [address], [id number], tel: [phone] [facility] No Information 1 [place] Jerad. [address] [place] [address], [facility], . tel: [phone] Family History Family Member Type Diagnosis Age At Onset Problem Family history of Diabetes m ellitus Problem Family history of Cancer, un known Problem Family history of hypertensi on Problem Family history of Cardiovasc ular disease Payers Payer name Insurance type Covered green party ID Arash centeno(s) Perfecto [id number] Social History Type Description Quantity Date Captured [...] BS 94 AMA1c [facility]. Patient speaks no Kyrgyz, she translates for him. Functional Status Date [...]
--- OUTSIDE RECORDS SUMMARY | 2025-01-24 09:30 | XMS_ITS | Encounter Summary ---
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 Name Role Phone Alix Diaz Primary Care Provider [phone] Reason for Visit * Reason Comments Follow-up Diabetes Encounter Details Date Type Department Care Team (Latest Contact Info) Description 01/24/2025 9:30 AM EST Office Visit [facility] [address], [place] [phone] Alix Diaz ANP [address] [place], [place] [phone] Uncontrolled type 2 diabetes mellitus with hyperglycemia (HCC) (Primary Dx); MDD (major depressive disorder), recurrent episode, moderate (CMS/HCC) (HCC); Primary hypertension; Hypertension associated with diabetes (HCC); Diabetic polyneuropathy associated with type 2 diabetes mellitus (HCC); Literacy level of illiterate; Former heavy tobacco smoker; Hematuria, unspecified type; Encounter for vaccination; Benign essential HTN; Dizziness Social History Tobacco Use Types Packs/Day Years [...] the past 12 months, has t he [employer], gas, oil or water company threatened to [...] Sign Reading Time Taken Comments Blood Pressure 120/68 01/24/2025 9:07 AM EST Pulse 109 01/24/2025 9:07 AM EST Temperature 37 C (98.6 F) 01/24/2025 9:07 AM EST Respiratory Rate 13 01/24/2025 9:07 AM EST Oxygen Saturation 95% 01/24/2025 9:07 AM EST Inhaled Oxygen Concentration - - Weight 108 kg (238 lb) 01/24/2025 9:07 AM EST Height 175.3 cm (5' 9 ) 01/24/2025 9:07 AM EST Body Mass Index 35.15 01/24/2025 9:07 AM EST documented in this encounter Progress Notes * [facility] - 01/24/2025 9:30 AM EST SUBJECTIVE: Ahmet Avila is a 59 y.o. year old male who presents for chronic disease management. Denies recent illness, injury, or hospitalization. PMH T2DM w/ HTN/CKD/HLD, h/o etoh abuse, GERD, MDD, ED, vit d deficiency Low literacy Here today for blood pressure and diabetes follow-up. Last visit he reported taking all medicines in his med box and never missing insulin dose. I am notconfident in his history however as he has a long history of noncompliance with medications and at our visits he agrees to additional interventions such as VNA or CD TM but then declines when those services are actually followed up on. Acute Concerns: Dizziness: happening 3x/d when he is going from seated to standing. No assoc symptoms. Happening for years . Sits down when it happens and symptoms improve. Diabetes Mellitus - Reports taking insulin 2-3 times/d - Always takes tresiba - Takes Novolog when values around 200-300 mg/dL - has CGM but not wearing today. Denies needing help putting it on. Did not bring reader today. - POC current blood sugar is 317 mg/dL - Reports frequent dry mouth, attributes to medication - Drinks water throughout the day, approximately 10-20 large cups daily - Reports feeling weak, thirsty. Has burning pain in both feet. - does not want to add more pills to his regimen Dark Urine - Reports urine appears real dark - Denies seeing blood in urine - reports does feel he benefits from tamsulosin, does not want to discontinue Non-smoker Lab Results Component Value Date HGBA1C 9.8 (A) 01/24/2025 HGBA1C 10.3 (A) 04/24/2024 HGBA1C 9.3 (A) 12/01/2023 HGBA1C 10.6 (A) 05/02/2023 HGBA1C 9.7 (H) 12/25/2019 HGBA1C 9.7 (H) 12/25/2019 Social History Social History Narrative Not on file Problem List[1] Surgical History[2] Family History[3] Review of Systems Constitutional: Negative for chills and fever. HENT: Negative for sore throat. Eyes: Negative for visual disturbance. Respiratory: Negative for cough and shortness of breath. Cardiovascular: Negative for chest pain, palpitations and leg swelling. Gastrointestinal: Negative for abdominal pain, constipation and diarrhea. Endocrine: Positive for polydipsia. Negative for polyphagia and polyuria. Genitourinary: Negative for dysuria, frequency and hematuria. Musculoskeletal: Positive for myalgias. Neurological: Positive for weakness. Burning pain in feet Psychiatric/Behavioral: Positive for sleep disturbance. The patient is nervous/anxious. OBJECTIVE: Vitals: 01/24/25 0907 BP: 120/68 BP Location: Left arm Patient Position: Sitting BP Cuff Size: Large adult Pulse: 109 Resp: 13 Temp: 98.6 ??F (37 ??C) TempSrc: Oral SpO2: 95% Weight: 238 lb (108 kg) Height: 5' 9 (1.753 m) Physical Exam Vitals reviewed. Constitutional: Appearance: Normal appearance. He is obese. HENT: Head: Normocephalic and atraumatic. Eyes: General: No scleral icterus. Extraocular Movements: Extraocular movements intact. Pupils: Pupils are equal, round, and reactive to light. Cardiovascular: Rate and Rhythm: Normal rate and regular rhythm. Pulses: Dorsalis pedis pulses are 2+ on the right side and 2+ on the left side. Posterior tibial pulses are 2+ on the right side and 2+ on the left side. Pulmonary: Effort: Pulmonary effort is normal. Musculoskeletal: Right lower leg: No edema. Left lower leg: No edema. Feet: Right foot: Protective Sensation: 5 sites tested. 5 sites sensed. Skin integrity: Callus present. Toenail Condition: Right toenails are abnormally thick. Fungal disease present. Left foot: Protective Sensation: 5 sites tested. 5 sites sensed. Skin integrity: Skin integrity normal. Toenail Condition: Left toenails are abnormally thick. Fungal disease present. Skin: General: Skin is warm and dry. Neurological: Mental Status: He is alert and oriented to person, place, and time. Psychiatric: Mood and Affect: Mood normal. Behavior: Behavior normal. ASSESSMENT/PLAN Ahmet was seen today for follow-up and diabetes. Diagnoses and all orders for this visit: Assessment & Plan Uncontrolled type 2 diabetes mellitus with hyperglycemia (HCC) (Primary) Remains uncontrolled, long discussion w/ pt about meds and how he takes. Says he takes all meds in medbox. 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 Med refill history supports consistency but pen needle prescription fill history does not. Prescription - Continue insulin degludec (Tresiba) daily - Administer insulin aspart (NovoLog) with largest meals - Persistent hyperglycemia with current blood glucose of 317 and A1c of 9.8. Insulin regimen not followed as prescribed; suboptimal adherence to insulin dosing and timing. High blood sugar likely contributing to symptoms of dry mouth and malaise. Unclear what exactly he is doing with meds and no CGM data to inform treatment, asked him to bring ALL medications including insulin pens and CGM reader to visit on Monday with CDTM pharmacist. He has previously agreed to meet with CDTM or nursing but then declines when we call to schedule. Reviewed in detail with him the need for this visit to help with his diabetes control. Would recommend [id number] but need to be very clear with his current regimen before adding additional meds. No known h/o pancreatitis. - Recommended meeting with nurse and pharmacist for diabetes management support. Scheduled follow-up with nursing staff next week; instructed to bring glucose reader, medication list, and insulin pens. Advised to wear glucose monitor and bring device to next visit. No additional oral hypoglycemic agents added. . Encouraged improved adherence to insulin regimen. - POCT Glucose - POCT Hgb A1c MDD (major depressive disorder), recurrent episode, moderate (CMS/HCC) (HCC) May be impacting ability to care for self/administer medications Pt denies depression today though does report difficulty sleeping Dizziness - Dizziness and near-syncope possibly related to antihypertensive therapy. - Recommended switch amlodipine to evening. Will monitor for improvement in dizziness and orthostatic symptoms. - he says he got holter a few years ago w/ cardiology, I will look for these results and if unable to locate, re-order Primary hypertension, Hypertension associated with diabetes (HCC) - Hypertension present in context of diabetes; possible contribution to dizziness and falls. - Adjusted antihypertensive regimen as above. Will reassess blood pressure control and symptoms at follow-up. At/near goal today, </= 130/80. Concern for orthostatic hypotension as above. Continue to encourage low salt diet, regular exercise, home BP monitoring, compliance with medications. Call clinic if BP is frequently >150/90 Go to ED/call 911 if > 170/100 and having sx such as RADFORD, visual changes, chest pain, SOB Last renal function: Lab Results Component Value Date BUN 18 12/25/2019 BUN 18 12/25/2019 Lab Results Component Value Date MICROALBCREA 19 12/25/2019 No results found for: MICROALBCREU Reminded of labs to get done Diabetic polyneuropathy associated with type 2 diabetes mellitus (HCC) Needs DM shoes as stated below. - Albumin, Random Urine W/Creatinine; Future Literacy level of illiterate Using simple phrasing, repeated plan and had pt teach back Former heavy tobacco smoker Referred in past for LDCT and will recommend again at follow-up Hematuria, unspecified type Recheck: - Urinalysis, Complete, with Reflex to Culture Encounter for vaccination - COVID-19 VACCINE [id number] (Comirnaty) 19 yrs + Benign essential hypertension As above - amLODIPine (Norvasc) 5 MG tablet; Take 1 tablet (5 mg) by mouth in the evening. - COVID-19 vaccine administered today Diabetic Statement I am treating this patient under a comprehensive plan of care for his diabetes. This patient needs special shoes (depth or custom-molded shoes) because of his diabetes. Date late seen for diabetic exam: 01/24/2025 I certify that this patient has diabetes mellitus. I am the pt's PCP but [facility] an MD or DO is required to co-sign on a diabetic shoe prescription. As such, the physician below agrees with the plan of care. Statement of Certifying Physician for Therapeutic Shoes This patient has one or more of the following conditions: - history of partial or complete amputation of the foot - history of previous foot ulceration. - history of pre-ulcerative callus. X peripheral neuropathy with evidence of callus formation. - foot deformity - poor circulation. Diabetic shoes are medically necessary for this patient. MD/DO signature MD/DO name printed MD/DO NPI# This note was drafted using Ambient (AI) technology. The patient/patient's guardian has been informed and has consented to the use of this technology: Yes Next appointment(s): - Visit with pharmacist next week for medication review and glucose monitoringeducation (bring reader, Med box list, insulin pens) - Appointment with pharmacist Marquita at 1:30 for diabetes management. Thank you again for your visit, and we look forward to supporting you in your journey to better health. Future Appointments Date Time Provider Department Center 01/27/2025 1:30 PM Marquita Thompson, [place] [facility] Follow Up: as scheduled Medications Ordered Prior to Encounter[4] Surinamese Translation: Patient is bilingual and declines translation services [1] Patient Active Problem List Diagnosis MDD (major depressive disorder), recurrent episode, moderate (CMS/HCC) (HCC) Alcohol dependence (HCC) Asthma Diabetes mellitus type 2, uncomplicated (HCC) Hypercholesterolemia Hypertension associated with diabetes (HCC) Severe recurrent major depression with psychotic features (CMS/HCC) (HCC) Tobacco dependence syndrome Uncontrolled type 2 diabetes mellitus with hyperglycemia (HCC) Diabetic polyneuropathy associated with type 2 diabetes mellitus (HCC) Literacy level of illiterate Former heavy tobacco smoker [2] History reviewed. No pertinent surgical history. [3] No family history on file. [4] Current Outpatient Medications on File Prior to Visit Medication Sig Dispense Refill Alcohol Swabs (Alcohol Prep) 70 % pads USE DIRECTED 100 each 11 Aspirin Low Dose 81 MG EC tablet TAKE 1 TABLET BY MOUTH AT BEDTIME 90 tablet 1 atorvastatin (Lipitor) 10 MG tablet TAKE 1 TABLET BY MOUTH AT BEDTIME 90 tablet 3 BD Pen Needle Short Ultrafine 31G X 8 MM misc USE DIRECTED TWICE DAILY 100 each 3 Continuous Glucose Sensor (FreeStyle Bettina 3 Plus Sensor) misc 1 each every 15 days. (Change every 15 days) 2 each 11 D3-1000 25 MCG (1000 UT) capsule TAKE 1 CAPSULE BY MOUTH EVERY EVENING 90 capsule 0 doxepin (SINEquan) 150 MG capsule Take 1 capsule (150 mg) by mouth at bedtime. 90 capsule 3 folic acid (Folvite) 1 MG tablet TAKE 1 TABLET BY MOUTH EVERY MORNING 90 tablet 1 FREESTYLE LITE test strip TEST BLOOD SUGAR THREE TIMES DAILY 100 strip 11 glucose blood (FreeStyle Precision [place] Test) test strip Use to test blood sugar 5 times daily 100 each 12 hydroCHLOROthiazide (HYDRODiuril) 25 MG tablet TAKE 1 TABLET BY MOUTH EVERY MORNING 90 tablet 3 latanoprost (Xalatan) 0.005 % ophthalmic solution Administer 1 drop into affected eye(s) in the morning. 2.5 mL 5 lisinopril 40 MG tablet TAKE 1 TABLET BY MOUTH EVERY EVENING 90 tablet 3 loratadine (Claritin) 10 MG tablet TAKE 1 TABLET BY MOUTH AT BEDTIME 90 tablet 1 metFORMIN XR (Glucophage-XR) 500 MG 24 hr tablet TAKE 1 TABLET BY MOUTH TWICE DAILY IN THE MORNING AND IN THE EVENING WITH FOOD 180 tablet 0 Multiple Vitamin (Multivitamin) tablet TAKE 1 TABLET BY MOUTH EVERY MORNING WITH FOOD 90 tablet 1 NovoLOG FLEXPEN 100 UNIT/ML pen INJECT 30 UNITS SUBCUTANEOUSLY BEFORE BREAKFAST AND BEFORE SUPPER 30 mL 2 omeprazole (PriLOSEC) [address] capsule TAKE 1 CAPSULE BY MOUTH AT BEDTIME 90 capsule 3 polycarbophil (FiberCon) 625 MG tablet Take 1 tablet (625 mg) by mouth Once per day. 30 tablet 11 QUEtiapine (SEROquel) 100 MG tablet TAKE 1 TABLET BY MOUTH AT BEDTIME 90 tablet 1 sildenafil (Viagra) 50 MG tablet Take 1 tablet (50 mg) by mouth Once daily as needed for erectile dysfunction. 20 tablet 1 tamsulosin (Flomax) 0.4 MG 24 hr capsule TAKE 1 CAPSULE BY MOUTH EVERY EVENING 30 capsule 1 thiamine (Vitamin B-1) 100 MG tablet TAKE 1 TABLET BY MOUTH EVERY MORNING 90 tablet 1 Tresiba FlexTouch 100 UNIT/ML injection INJECT 60 UNITS SUBCUTANEOUSLY EVERY MORNING 15 mL 2 TRUEplus Lancets [facility] BLOOD SUGAR THREE TIMES DAILY 100 each 11 [DISCONTINUED] amLODIPine (Norvasc) 5 MG tablet TAKE 1 TABLET BY MOUTH EVERY MORNING 90 tablet 1 [DISCONTINUED] Multiple Vitamin (Multivitamin) tablet TAKE 1 TABLET BY MOUTH EVERY MORNING WITH FOOD 90 tablet 1 [DISCONTINUED] QUEtiapine (SEROquel) 100 MG tablet Take 1 tablet (100 mg) by mouth at bedtime. 90 tablet 1 [DISCONTINUED] thiamine (Vitamin B-1) 100 MG tablet TAKE 1 TABLET BY MOUTH EVERY MORNING 90 tablet 1 No current facility-administered medications on file prior to visit. documented in this encounter Plan of Treatment Upcoming Encounters Date Type Department Care Team (Late st Contact Info) Description 01/27/2025 1:30 PM EST Medication Management [facility] [address] [place] [address] Marquita Thompson PharmD [address] [place] [address] Scheduled Orders Name Type Priority Associated Diagnoses Orde r Schedule Albumin, Random Urine W/Creatinine Lab Routine Diabetic polyneuropathy associated with type 2 diabetes mellitus (HCC) Expected: 01/24/2025 (Approximate), Expires: 01/24/2026 documented as of this encounter Goals Goal Patient Goal Type Associated Problems Recent Progress Patient-Stated? Author Help patients manage their type 2 diabetes Care Plan Help patients manage their type 2 diabetes No Kylee Madison RN Weekly blood pressure task Care Plan Weekly blood pressure task No Kylee Madison RN Help patients manage their type 2 diabetes Care Plan Help patients manage their type 2 diabetes No Kylee Madison RN Patient has chronic kidney disease Care Plan Patient has chronic kidney disease No Kylee Madison RN Help patients manage their type 2 diabetes Care Plan Help patients manage their type 2 diabetes No Kylee Madison RN Patient has diabetic neuropathy Care Plan Patient has diabetic neuropathy No Kylee Madison RN Weekly blood pressure task Care Plan Weekly blood pressure task No Kylee Madison RN Weekly blood pressure task Care Plan Weekly blood pressure task No Kylee Madison RN Patient has chronic kidney disease Care Plan Patient has chronic kidney disease No Kylee Madison RN Patient has chronic kidney disease Care Plan Patient has chronic kidney disease No Kylee Madison RN Patient has diabetic neuropathy Care Plan Patient has diabetic neuropathy No Kylee Madison RN Patient has diabetic neuropathy Care Plan Patient has diabetic neuropathy No Kylee Madison RN Weekly blood pressure task Care Plan Weekly blood pressure task No Joao Collier MA Weekly blood pressure task Care Plan Weekly blood pressure task No Joao Collier [place] Weekly blood pressure task Care Plan Weekly blood pressure task No Joao Collier [place] Patient has chronic kidney disease Care Plan Patient has chronic kidney disease No Joao Collier [place] Patient has chronic kidney disease Care Plan Patient has chronic kidney disease No Joao Collier [place] Patient has chronic kidney disease Care Plan Patient has chronic kidney disease No Joao Collier [place] Patient has diabetic neuropathy Care Plan Patient has diabetic neuropathy No Joao Collier [place] Patient has diabetic neuropathy Care Plan Patient has diabetic neuropathy No Joao Collier [place] Patient has diabetic neuropathy Care Plan Patient has diabetic neuropathy No Joao Collier [place] Weekly blood pressure task Care Plan Weekly blood pressure task No Joao Collier MA Weekly blood pressure task Care Plan Weekly blood pressure task No Joao Collier MA Weekly blood pressure task Care Plan Weekly blood pressure task No Joao Collier [place] Patient has chronic kidney disease Care Plan Patient has chronic kidney disease No Joao Collier [place] Patient has chronic kidney disease Care Plan Patient has chronic kidney disease No Joao Collier [place] Patient has chronic kidney disease Care Plan Patient has chronic kidney disease No Joao Collier [place] Patient has diabetic neuropathy Care Plan Patient has diabetic neuropathy No Joao Collier [place] Patient has diabetic neuropathy Care Plan Patient has diabetic neuropathy No Joao Collier [place] Patient has diabetic neuropathy Care Plan Patient has diabetic neuropathy No Joao Collier [place] Weekly blood pressure task Care Plan Weekly blood pressure task No Alix Diaz ANP Weekly blood pressure task Care Plan Weekly blood pressure task No Alix Diaz ANP Weekly blood pressure task Care Plan Weekly blood pressure task No Alix Diaz ANP Patient has chronic kidney disease Care Plan Patient has chronic kidney disease No Alix Diaz ANP Patient has chronic kidney disease Care Plan Patient has chronic kidney disease No Alix Diaz ANP Patient has chronic kidney disease Care Plan Patient has chronic kidney disease No Alix Diaz ANP Patient has diabetic neuropathy Care Plan Patient has diabetic neuropathy No Alix Diaz ANP Patient has diabetic neuropathy Care Plan Patient has diabetic neuropathy No Alix Diaz ANP Patient has diabetic neuropathy Care Plan Patient has diabetic neuropathy No Alix Diaz ANP Weekly blood pressure task Care Plan Weekly blood pressure task No Harriet Womack RN Weekly blood pressure task Care Plan Weekly blood pressure task No Harriet Womack RN Weekly blood pressure task Care Plan Weekly blood pressure task No Harriet Womack RN Patient has chronic kidney disease Care Plan Patient has chronic kidney disease No Harriet Womack RN Patient has chronic kidney disease Care Plan Patient has chronic kidney disease No Harriet Womack RN Patient has chronic kidney disease Care Plan Patient has chronic kidney disease No Harriet Womack RN Patient has diabetic neuropathy Care Plan Patient has diabetic neuropathy No Harriet Womack RN Patient has diabetic neuropathy Care Plan Patient has diabetic neuropathy No Maider, Harriet, RN Patient has diabetic neuropathy Care Plan Patient has diabetic neuropathy Harriet Antoine RN documented as of this encounter Procedures Procedure Name Priority Date/Time Associated Diagnosis Comments POCT GLYCATED HEMOGLOBIN, TOTAL Routine 01/24/2025 9:11 AM EST Uncontrolled type 2 diabetes mellitus with hyperglycemia (HCC) POCT GLUCOSE Routine 01/24/2025 9:10 AM EST Uncontrolled type 2 diabetes mellitus with hyperglycemia (HCC) URINALYSIS, COMPLETE, WITH REFLEX TO CULTURE Routine 01/24/2025 12:00 AM EST Hematuria, unspecified type documented in this encounter Results * (ABNORMAL) POCT Hgb A1c (01/24/2025 9:11 AM EST) Hemoglobin A1C 9.8(A) 4.0 - 5.7 % QC Media Lot # [id number] Lot# Expiration Date , Blood 01/24/2025 9:11 AM EST [facility] Diaz ANP POINT OF CARE TEST ENTER/EDIT OR DERABLES Final Result * (ABNORMAL) POCT Glucose (01/24/2025 9:10 AM EST) Pathologist [facility] Glucose Blood, POC 238(A) 60 - 200 mg/dL QC Media Lot # [id number] Lot# Expiration Date 3,,026 Blood Capillary blood specimen / Unknown 01/24/2025 9:10 AM EST [facility] Diaz ANP POINT OF CARE TEST ENTER/EDIT OR DERABLES Final Result * (ABNORMAL) Urinalysis, Complete, with Reflex to Culture (01/24/2025 12:00 AM EST) Color Urine Yellow [facility] Appearance Urine Clear [facility] PH 5.0 5.0 - 9.0 [facility] Glucose Urine UA 250(A) Negative mg/dL [facility] Urine Blood Negative Negative [facility] Specific [place] - Urine 1.020 1.005 - 1.025 [facility] Urine Protein 100 (2+)(A) Neg-Trace mg/dL [facility] Urine Ketones Trace Negative mg/dL [facility] Nitrite Urine Negative Negative [facility] Leukocyte Esterase Urine Negative Negative [facility] RBC Urine 0-2 0 - 2 /HPF [facility] Urine WBC 0-5 0 - 5 /HPF [facility] Urine Squamous Epithelial Cell 0-2 0 - 2 /HPF [facility] Urine Bacteria None Seen None Seen [facility] Hyaline Casts, Urine 0-2 0 - 2 /LPF [facility] Urine 01/24/2025 01/24/2025 Narrative [facility] - 01/24/2025 2:42 PM EST Urine, Clean Catch [facility] URINE ORDERABLES Final Resul t [facility] [address] [place] [address] [phone] documented in this encounter Visit Diagnoses Diagnosis Uncontrolled type 2 diabetes mellitus with hyperglycemia (HCC)- Primary MDD (major depressive disorder), recurrent episode, moderate (CMS/HCC) (HCC) Primary hypertension Unspecified essential hypertension Hypertension associated with diabetes (HCC) Unspecified essential hypertension Diabetic polyneuropathy associated with type 2 diabetes mellitus (HCC) Literacy level of illiterate Former heavy tobacco smoker Hematuria, unspecified type Encounter for vaccination Benign essential HTN Dizziness Dizziness and giddiness documented in this encounter Additional Health Concerns Active Problems Noted Date Diagnosed Date Help patients manage their type 2 diabetes 01/22 Weekly blood pressure task 01/22/2025 Help patients manage their type 2 diabetes 01/22 Patient has chronic kidney disease 01/22/2025 Help patients manage their type 2 diabetes 01/22 Patient has diabetic neuropathy 01/22/2025 Weekly blood pressure task 01/22/2025 Weekly blood pressure task 01/22/2025 Patient has chronic kidney disease 01/22/2025 Patient has chronic kidney disease 01/22/2025 Patient has diabetic neuropathy 01/22/2025 Patient has diabetic neuropathy 01/22/2025 Weekly blood pressure task 01/23/2025 Weekly blood pressure task 01/23/2025 Weekly blood pressure task 01/23/2025 Patient has chronic kidney disease 01/23/2025 Patient has chronic kidney disease 01/23/2025 Patient has chronic kidney disease 01/23/2025 Patient has diabetic neuropathy 01/23/2025 Patient has diabetic neuropathy 01/23/2025 Patient has diabetic neuropathy 01/23/2025 Weekly blood pressure task 01/24/2025 Weekly blood pressure task 01/24/2025 Weekly blood pressure task 01/24/2025 Patient has chronic kidney disease 01/24/2025 Patient has chronic kidney disease 01/24/2025 Patient has chronic kidney disease 01/24/2025 Patient has diabetic neuropathy 01/24/2025 Patient has diabetic neuropathy 01/24/2025 Patient has diabetic neuropathy 01/24/2025 Weekly blood pressure task 01/24/2025 Weekly blood pressure task 01/24/2025 Weekly blood pressure task 01/24/2025 Patient has chronic kidney disease 01/24/2025 Patient has chronic kidney disease 01/24/2025 Patient has chronic kidney disease 01/24/2025 Patient has diabetic neuropathy 01/24/2025 Patient has diabetic neuropathy 01/24/2025 Patient has diabetic neuropathy 01/24/2025 Weekly blood pressure task 01/24/2025 Weekly blood pressure task 01/24/2025 Weekly blood pressure task 01/24/2025 Patient has chronic kidney disease 01/24/2025 Patient has chronic kidney disease 01/24/2025 Patient has chronic kidney disease 01/24/2025 Patient has diabetic neuropathy 01/24/2025 Patient has diabetic neuropathy 01/24/2025 Patient has diabetic neuropathy 01/24/2025 Assessment Noted Time PHQ-9 Depression Total Score: 2 06/06/19 24 11:46 AM EDT documented as of this encounter Care Teams Shredded Filler Cutter Operator Relationship Specialty Start Date End Date Alix Diaz ANP [address] [place] [id number] PCP - General Family Medicine 11/11/19 documented as of this encounter
[2025-01-24 14:39] LABS: Appearance Urine Clear; Glucose Urine UA 250 mg/dL (Negative); PH 5.0 (5.0-9.0); Specific Gravity - Urine 1.020 (1.005-1.025); UMIC TRIGGER UACC YES
[2025-01-24 15:41] LABS: Microalbum/Creatinine Ratio Ur 471.4 ug/mg cr (<30)
--- OUTSIDE RECORDS SUMMARY | 2025-01-24 21:28 | XMS_ITS | Encounter Summary ---
Author Organization [employer] Address 75 [facility] 7t [place] [address] Care Team Providers Care Tap And Die Maker Technician Name Role Phone Alix Diaz Primary Care Provider [phone] Encounter Details Date Type Department Care Team (Late st Contact Info) Description 01/24/2025 Orders Only [facility] MEDICINE [address] [place], [place] [phone] Alix Diaz ANP [address] [place], [place] [phone] Social History Tobacco Use Types Packs/Day Years [...] t he electric, gas, oil or water Whisper threatened to shut off services in your [...] as of this encounter Plan of Treatment Upcoming Encounters Date Type Department Care Team (Late st Contact Info) Description 01/27/2025 1:30 PM EST Medication Management [facility] [address] [place] [address] Marquita Thompson, PharmD [address] [place], [place] [phone] documented as of this encounter Goals Goal [...] has diabetic neuropathy No Harriet Womack RN documented as of this encounter Procedures Procedure Name Priority Date/Time Associated Diagnosis Comments ALBUMIN, RANDOM URINE W/CREATININE Routine 01/24/2025 12:00 AM EST documented in this encounter Results * (ABNORMAL) Albumin, Random Urine W/Creatinine (01/24/2025 12:00 AM EST) Creatinine, Urine 137.86 mg/dL [facility] Microalbumin Urine 650.0 mg/L [facility] Microalbum Creatinine Ratio Ur 471.4(H) <30 ug/mg cr [facility] Comment:Albumin/Creatinine R atio Reference Ranges: Normal: < 30 ug/mg creatinine Microalbuminuria: 30 - 300 ug/mg creatinineClinical Albuminuria: > 300 ug/mg creatinine 01/24/2025 01/24/2025 Alix AGUSTIN [facility] URINE ORDERABLES Final Resul t [facility] [address] [place] [phone] documented in this encounter Visit Diagnoses Not on filedocumented in this encounter Additional Health Concerns Active [...] documented as of this encounter Care Teams Tap And Die Maker Technician Relationship Specialty Start Date End Date Alix Diaz ANP [address] [place] [address] PCP - General Family Medicine 11/11/19 documented as of this encounter
--- OUTSIDE RECORDS SUMMARY | 2025-01-24 21:28 | XMS_ITS | Encounter Summary ---
Author Organization [employer] Address 75 [facility] 7t [place] [address] Care Team Providers Care Motor Expert Name Role Phone Alix Diaz Primary Care Provider [phone] Encounter Details Date Type Department Care Team (Latest Contact Info) Description 01/24/2025 Travel Social History Tobacco Use Types Packs/Day [...] 1:30 PM EST Medication Management [facility] MEDICINE [address] [place] [address] Marquita Thompson, PharmD 230 [place], [place] [phone] documented as of this encounter Goals Goal [...] Plan Patient has diabetic neuropathy No Joao Clolier [place] Patient has diabetic neuropathy Care Plan [...] Plan Patient has diabetic neuropathy No Alix Daiz ANP Weekly blood pressure task Care Plan [...] Womack RN documented as of this encounter Visit Diagnoses [...] documented as of this encounter Care Teams Motor Expert Relationship Specialty Start Date End Date Alix Diaz ANP [address] [place] [address] PCP - General Family Medicine 11/11/19 documented as of this encounter
--- OUTSIDE RECORDS SUMMARY | 2025-01-24 21:28 | XMS_ITS | Encounter Summary ---
Author Organization [employer] Address 75 [facility] 7t [place] [address] Care Team Providers Care Apparel Manager Name Role Phone Alix Diaz Primary Care Provider [phone] Encounter Details Date Type Department Care Team (Late st Contact Info) Description 08/10/2022 Orders Only [facility] PEDS [address] [place] [address] April Zaman LPN Social History Tobacco Use [...] Description 01/27/2025 1:30 PM EST Medication Management [facility] MEDICINE [address] [place] [address] Marquita Thompson, PharmD [address] [place] [address] documented as of this encounter Visit Diagnoses Not on filedocumented in this encounter Additional Health Concerns Assessment Noted Time PHQ-9 Depression Total Score: 4 07/26/19 23 2:48 PM EDT documented as of this encounter Care Teams Apparel Manager Relationship Specialty Start Date End Date Alix Diaz ANP [address] [place] [address] PCP - General Family Medicine 11/11/19 documented as of this encounter
--- OUTSIDE RECORDS SUMMARY | 2025-01-24 21:29 | XMS_ITS | Encounter Summary ---
Author Organization [employer] Address [address] [facility] 7t [place] [address] Care Team Providers Care Retail Analyst Name Role Phone Alix Diaz Primary Care Provider [phone] Encounter Details Date Type Department Care Team (Late st Contact Info) Description 01/16/2023 Orders Only [facility] PEDS [address] [place] [address] April Zaman LPN Social History Tobacco Use [...] 1:30 PM EST Medication Management [facility] MEDICINE [address] [place] [address] Marquita Thompson, PharmD [address] [place] [address] documented as of this encounter Visit Diagnoses Not on filedocumented in this encounter Additional Health Concerns Assessment Noted Time PHQ-9 Depression Total Score: 5 01/10/20 23 9:08 AM EDT documented as of this encounter Care Teams Retail Analyst Relationship Specialty Start Date End Date Alix Diaz ANP [address] [place] [address] PCP - General Family Medicine 11/11/19 documented as of this encounter
--- OUTSIDE RECORDS SUMMARY | 2025-01-24 21:29 | XMS_ITS | Encounter Summary ---
Author Organization [employer] Address 75 [facility] 7t [place] [address] Care Team Providers Care Children'S Entertainer Name Role Phone Alix Diaz Primary Care Provider [phone] Reason for Visit * Reason Comments Med Refill Encounter Details Date Type Department Care Team ([facility] st Contact Info) Description 01/24/2025 Refill [facility] [address] [place], [place] [phone] Alix Diaz ANP [address] [place] [address] Type 2 diabetes mellitus with hyperlipidemia (HCC) Social History Tobacco Use Types Packs/Day Years [...] Description 01/27/2025 1:30 PM EST Medication Management [facility] MED[facility]INE [address] [place] [address] Marquita Thompson, PharmD [address] [place] [address] documented as of this encounter Goals Goal [...] Diagnosis Type 2 diabetes mellitus with hyperlipidemia (HCC) documented in this encounter Additional Health Concerns [...] documented as of this encounter Care Teams Children'S Entertainer Relationship Specialty Start Date End Date Alix Diaz ANP [address] [place] [address] PCP - General Family Medicine 11/11/19 documented as of this encounter
--- OUTSIDE RECORDS SUMMARY | 2025-01-24 21:29 | XMS_ITS | Encounter Summary ---
Author Organization [employer] [facility] Address 75 [facility] 7t [place] [address] Care Team Providers Care Optical Designer Name Role Phone Alix Diaz Primary Care Provider [phone] Encounter Details Date Type Department Care Team (Late st Contact Info) Description 05/04/2022 Orders Only [facility] MEDICINE [address] [place] [phone] Sangita Palomino LPN Social History Tobacco Use [...] Description 01/27/2025 1:30 PM EST Medication Management [facility] MEDICINE [address] [place] [address] Marquita Thompson, JaydonD [address] [place] [address] documented as of this encounter Visit Diagnoses Not on filedocumented in this encounter Additional Health Concerns Assessment Noted Time PHQ-9 Depression Total Score: 5 04/28/19 23 9:47 AM EST documented as of this encounter Care Teams Optical Designer Relationship Specialty Start Date End Date Alix Diaz ANP [address] [place] [address] PCP - General Family Medicine 11/11/19 documented as of this encounter
--- OUTSIDE RECORDS SUMMARY | 2025-01-24 21:29 | XMS_ITS | Encounter Summary ---
Author Organization [employer] Address 75 [facility] 7t [place] [address] Care Team Providers Care Extension Service Agent Name Role Phone Alix Diaz Primary Care Provider [phone] Reason for Visit * Reason Onset Date Comments Paperwork/Forms 01/22/2025 Prior Authorization 01/22/2025 Encounter Details Date Type Department Care Team ([facility] st Contact Info) Description 01/22/2025 Telephone [facility] MEDICINE [address] [place] [address] Kylee Madison RN [address] [place] [address] Paperwork/Forms; Prior Authorization Social History Tobacco Use Types Packs/Day Years [...] Telephone Encounter - Kylee Madison RN - 01/22/2025 11:00 AM EST Received fax from [email or web address] [facility] Faxed back notice that we will NOT be filling out form as pt is filling at our pharmacy. Also received request for PA for kaleb 3 plus sensors from our pharmacy. PA completed. Waiting on office note as pt has not been seen in >6m and si scheduled to see PCP 01/24/25 (this Monday). documented in this encounter Plan of Treatment Upcoming Encounters Date Type Department Care Team (Late st Contact Info) Description 01/27/2025 1:30 PM EST Medication Management [facility] MEDICINE [address] [place] [address] Marquita Thompson, PharmD [address] [place] [address] documented as of this encounter Goals Goal Patient Goal Type Associated Problems Recent Progress Patient-Stated? Author Help patients manage their type 2 diabetes Care Plan Help patients manage their type 2 diabetes Kylee Ny, RN Weekly blood pressure task Care Plan Weekly blood pressure task Kylee Ny, PRICILLA Help patients manage their type 2 diabetes [...] neuropathy Care Plan Patient has diabetic neuropathy Kylee Ny RN Weekly blood pressure task Care Plan [...] has diabetic neuropathy No Kylee Madison RN documented as of this encounter Visit [...] neuropathy 01/22/2025 Patient has diabetic neuropathy 01/22/2025 Assessment Noted Time PHQ-9 Depression Total Score: 2 06/06/19 24 11:46 AM EDT documented as of this encounter Care Teams Extension Service Agent Relationship Specialty Start Date End Date Alix Diaz ANP [address] [place] [address] PCP - General Family Medicine 11/11/19 documented as of this encounter
--- OUTSIDE RECORDS SUMMARY | 2025-01-24 21:29 | XMS_ITS | Encounter Summary ---
Author Organization [employer] Address 75 [facility] 7t [place] [address] Care Team Providers Care Supervisor Fireworks Assembly Name Role Phone Alix Diaz Primary Care Provider [phone] Reason for Visit * Reason Comments Med Refill Encounter Details Date Type Department Care Team ([facility] st Contact Info) Description 10/25/2022 Refill [facility] MEDICINE [address] [place] [address] Gustabo Serna FNP MDD (major depressive disorder), [...] AM EDT documented as of this encounter Functional Status * Over the past 2 weeks, how often have you been bothered by any of the following problems? Question Answer Date of Assessment Author Patient Health Questionnaire -2 Score 0 10/25/2022 12:48 PM EDT Charlie Rodriguez MA * How difficult have these problems made it for you to do your work, take care of things at home, or get along with other people? Answer Date of Assessment Author Not difficult at all 10/25/2022 12:48 PM EDT Esme Joyce MA * Over the past 2 weeks, how often have you been bothered by any of the following problems? Question Answer Date of Assessment Author Little interest or pleasure in doing things Not at all 10/25/2022 12:48 PM EDT Reece Rodriguez MA Feeling down, depressed, or hopeless Not at all 10/25/2022 12:48 PM EDT Charlie Rodriguez MA Trouble falling or staying asleep, or sleeping too much Nearly every day 10/25/2022 12:48 PM EDT Charlie Rodriguez MA Feeling tired or having little energy Several days 10/25/2022 12:48 PM EDT Charlie Rodriguez MA Poor appetite or overeating Several days 10/25/2022 12:48 PM EDT Charlie Rodriguez MA Feeling bad about yourself - or that you are a failure or have let yourself or your family down Not at all 10/25/2022 12:48 PM EDT Charlie Rodriguez MA Trouble concentrating on things, such as reading the newspaper or watching television Not at all 10/25/2022 12:48 PM EDT Charlie Rodriguez MA Moving or speaking so slowly that other people could have noticed? Or the opposite - being so fidgety or restless that you have been moving around a lot more than usual. Not at all 10/25/2022 12:48 PM JORGET Charlie Rodriguez MA Thoughts that you would be better off or hurting yourself in some way Not at all 10/25/2022 12:48 PM EDT Gerardo Rodriguez MA Patient Health Questionnaire-9 Score 5 10/25/2022 12:48 PM EDT Harriett Rodriguez MA documented as of this encounter Plan of Treatment Upcoming Encounters Date Type Department Care Team (Late st Contact Info) Description 01/27/2025 1:30 PM EST Medication Management [facility] MEDICINE [address] [place] [address] Marquita Thompson, PharmD [address] [place] [address] documented as of this encounter Visit Diagnoses Diagnosis MDD (major depressive disorder), recurrent episode, moderate (CMS/HCC) (HCC) documented in this encounter Additional Health Concerns Assessment Noted Time PHQ-9 Depression Total Score: 5 10/26/19 23 12:48 PM EDT documented as of this encounter Care Teams Supervisor Fireworks Assembly Relationship Specialty Start Date End Date Alix Diaz ANP [address] [place] [address] PCP - General Family Medicine 11/11/19 documented as of this encounter
--- OUTSIDE RECORDS SUMMARY | 2025-01-24 21:29 | XMS_ITS | Encounter Summary ---
Author Organization [employer] Address 75 [facility] 7t [place] [address] Care Team Providers Care Fire Supervisor Name Role Phone Alix Diaz Primary Care Provider [phone] Encounter Details Date Type Department Care Team (Late st Contact Info) Description 01/24/2025 Results Follow-Up [facility] [address] [place], [place] [phone] Alix Diaz ANP [address] [place] [address] POCT Glucose, POCT Hgb A1c, Urinalysis, Complete, with Reflex to Culture Social History Tobacco Use Types Packs/Day Years [...] as of this encounter Miscellaneous Notes * Result Encounter Note - VAMSI Rock - 01/24/2025 3:26 PM EST UA as expected, urine albumin obtained same DOS documented in this encounter Plan of Treatment Upcoming Encounters Date Type Department Care Team (Late st Contact Info) Description 01/27/2025 1:30 PM EST Medication Management [facility] MEDICINE [address] [place] [address] Marquita Thompson, PharmD [address] [place] [address] documented as of this encounter Goals Goal Patient Goal Type Associated Problems Recent Progress Patient-Stated? Author Help patients manage their type 2 diabetes Care Plan Help patients manage their type 2 diabetes No Kylee Madison RN Weekly blood pressure task Care Plan Weekly blood pressure task No Kylee Madison, PRICILLA Help patients manage their type 2 diabetes Care Plan Help patients manage their type 2 diabetes No Kylee Madison RN Patient has chronic kidney disease Care Plan Patient has chronic kidney disease No Kylee Madison, PRICILLA Help patients manage their type 2 diabetes Care Plan Help patients manage their type 2 diabetes No Kylee Madison, PRICILLA Patient has diabetic neuropathy Care Plan Patient [...] documented as of this encounter Care Teams Fire Supervisor Relationship Specialty Start Date End Date Alix Diaz ANP [address] [place] [address] PCP - General Family Medicine 11/11/19 documented as of this encounter
--- OUTSIDE RECORDS SUMMARY | 2025-01-24 21:29 | XMS_ITS | Encounter Summary ---
Author Organization [employer] Address 75 [facility] 7t [place] [address] Care Team Providers Care Assistant Chief Nursing Officer Name Role Phone Alix Diaz Primary Care Provider [phone] Reason for Visit * Reason Onset Date Comments chart prep 01/23/2025 Encounter Details Date Type Department Care Team ([facility] st Contact Info) Description 01/23/2025 Telephone [facility] MEDICINE [address] [place] [address] Alix Diaz ANP [address] [place], [place] [phone] chart prep Social History Tobacco Use Types [...] encounter Miscellaneous Notes * Telephone Encounter - Joao Collier MA - 01/23/2025 11:54 AM EST Chart Prep Labs: done Images: done Referrals: complete Vaccines due: Covid, Flu, RSV, and Zoster Screenings: colonoscopy, eye exam, foot exam, and HIV screening Overdue care gaps: A1c, Glucose, Oral health screening, and Disability screen documented in this encounter Plan of Treatment Upcoming Encounters Date Type Department Care Team (Late st Contact Info) Description 01/27/2025 1:30 PM EST Medication Management [facility] MEDICINE [address] [place] [address] Marquita Thompson, PharmD [address] [place] [address] documented as of this encounter Goals Goal Patient Goal Type Associated Problems Recent Progress Patient-Stated? Author Help patients manage their type 2 diabetes Care Plan Help patients manage their type 2 diabetes No Kylee Madison, PRICILLA Weekly blood pressure task Care Plan Weekly blood pressure task No Kylee Madison, PRICILLA Help patients manage their type 2 diabetes Care Plan Help patients manage their type 2 diabetes Kylee Ny, RN Patient has chronic kidney disease Care Plan Patient has chronic kidney disease Kylee Ny, RN Help patients manage their type 2 [...] Patient has chronic kidney disease No Kylee Mdaison RN Patient has diabetic neuropathy Care Plan [...] has diabetic neuropathy No Joao Collier MA documented as of this encounter Visit Diagnoses [...] neuropathy 01/23/2025 Patient has diabetic neuropathy 01/23/2025 Assessment Noted Time PHQ-9 Depression Total Score: 2 06/06/19 24 11:46 AM EDT documented as of this encounter Care Teams Assistant Chief Nursing Officer Relationship Specialty Start Date End Date Alix Diaz ANP [address] [place] [address] PCP - General Family Medicine 11/11/19 documented as of this encounter
--- OUTSIDE RECORDS SUMMARY | 2025-01-24 21:29 | XMS_ITS | Clinical Summary ---
Author Organization [employer] Address [address] [facility] 7t [place] [address] Care Team Providers Care Call Or Contact Centre Coach Name Role Phone Alix Diaz Primary Care Provider [phone] Allergies Active Allergy Reactions Criticality Noted Date Comments Ranitidine 04/04/2019 Trazodone Itching 06/16/2021 Medications * This document contains information received from the source organization and may not represent a complete record from that organization. latanoprost (Xalatan) 0.005 % ophthalmic solutionIndicati ons:Allergic [...] erectile dysfunction. 20 tablet 1 024 Active FREESTYLE LITE test stripIndications :IFG (impaired fasting glucose) TEST BLOOD SUGAR THREE TIMES DAILY 100 strip 11 024 Active omeprazole (PriLOSEC) [address] capsuleIndicatio ns:Gastroesophag eal reflux disease, unspecified whether esophagitis present TAKE 1 CAPSULE BY MOUTH AT BEDTIME 90 capsule 3 024 Active polycarbophil (FiberCon) 625 MG tabletIndication s:Constipation, unspecified constipation type Take 1 tablet (625 mg) by mouth Once per day. 30 tablet 11 025 2025 Active glucose blood (FreeStyle Precision Easton Test) test stripIndications :Uncontrolled type 2 diabetes mellitus with hyperglycemia (HCC) Use to test blood sugar 5 times daily 100 each 025 2025 Active Alcohol Swabs (Alcohol Prep) 70 % padsIndications: Type 2 diabetes mellitus with hyperglycemia, with long-term current use of insulin (HCC) USE DIRECTED 100 each 11 025 Active doxepin (SINEquan) 150 MG capsule Take 1 capsule (150 mg) by mouth at bedtime. 90 capsule 3 025 Active BD Pen Needle Short Ultrafine 31G X 8 MM miscIndications: Hyperglycemia, unspecified USE DIRECTED TWICE DAILY 100 each 3 025 Active loratadine (Claritin) 10 MG tabletIndication s:Environmental and seasonal allergies TAKE 1 TABLET BY MOUTH AT BEDTIME 90 tablet 1 025 Active Aspirin Low Dose 81 MG EC tabletIndication s:Cardiovascular event risk TAKE 1 TABLET BY MOUTH AT BEDTIME 90 tablet 1 025 Active folic acid (Folvite) 1 MG tabletIndication s:Alcohol liver damage TAKE 1 TABLET BY MOUTH EVERY MORNING 90 tablet 1 025 Active NovoLOG FLEXPEN 100 UNIT/ML penIndications:U ncontrolled type 2 diabetes mellitus with hyperglycemia (HCC) INJECT 30 UNITS SUBCUTANEOUSLY BEFORE BREAKFAST AND BEFORE SUPPER 30 mL 2 025 Active hydroCHLOROthiaz yolanda (HYDRODiuril) 25 MG tablet TAKE 1 TABLET BY MOUTH EVERY MORNING 90 tablet 3 025 Active lisinopril 40 MG tablet TAKE 1 TABLET BY MOUTH EVERY EVENING 90 tablet 3 025 Active D3-1000 25 MCG (1000 UT) capsuleIndicatio ns:Vitamin D deficiency TAKE 1 CAPSULE BY MOUTH EVERY EVENING 90 capsule 025 Active atorvastatin (Lipitor) 10 MG tabletIndication s:Uncontrolled type 2 diabetes mellitus with hyperglycemia (HCC) TAKE 1 TABLET BY MOUTH AT BEDTIME 90 tablet 3 025 Active tamsulosin (Flomax) 0.4 MG 24 hr capsuleIndicatio ns:Gross hematuria TAKE 1 CAPSULE BY MOUTH EVERY EVENING 30 capsule 1 025 Active metFORMIN XR (Glucophage-XR) 500 MG 24 hr tabletIndication s:Type 2 diabetes mellitus with hyperlipidemia (HCC) TAKE 1 TABLET BY MOUTH TWICE DAILY IN THE MORNING AND IN THE EVENING WITH FOOD 180 tablet 025 Active Continuous Glucose Sensor (FreeStyle Bettnia 3 Plus Sensor) miscIndications: Uncontrolled type 2 diabetes mellitus with hyperglycemia (HCC) 1 each every 15 days. (Change every 15 days) 2 each 01/24/20 25 12:29 PM EST 025 Active Multiple Vitamin (Multivitamin) tablet TAKE 1 TABLET BY MOUTH EVERY MORNING WITH FOOD 90 tablet 1 025 Active thiamine (Vitamin B-1) 100 MG tabletIndication s:Alcohol liver damage TAKE 1 TABLET BY MOUTH EVERY MORNING 90 tablet 1 025 Active QUEtiapine (SEROquel) 100 MG tabletIndication s:MDD (major depressive disorder), recurrent episode, moderate (CMS/HCC) (HCC) TAKE 1 TABLET BY MOUTH AT BEDTIME 90 tablet 1 025 Active Tresiba FlexTouch 100 UNIT/ML injectionIndicat ions:Type 2 diabetes mellitus with hyperlipidemia (HCC) INJECT 60 UNITS SUBCUTANEOUSLY ONCE DAILY IN THE MORNING 15 mL 2 025 Active amLODIPine (Norvasc) 5 MG tabletIndication s:Benign essential HTN Take 1 tablet (5 mg) by mouth in the evening. 90 tablet 1 025 Active Continuous Glucose Sensor (FreeStyle Bettina 3 Plus Sensor) miscIndications: Uncontrolled type 2 diabetes mellitus with hyperglycemia (HCC) 1 each every 14 (fourteen) days. (Change every 15 days) 2 each 2 025 2024 Discontinued(D uplicate order (will not trigger notification to Pharmacy)) Continuous Glucose Sensor (FreeStyle Bettina 3 Sensor) miscIndications: Diabetic polyneuropathy associated with type 2 diabetes mellitus (HCC) 1 each every 14 (fourteen) days. 2 each 11 025 2024 Discontinued(D uplicate order (will not trigger notification to Pharmacy)) Multiple Vitamin (Multivitamin) tablet TAKE 1 TABLET BY MOUTH EVERY MORNING WITH FOOD 90 tablet 1 025 2024 Discontinued thiamine (Vitamin B-1) 100 MG tabletIndication s:Alcohol liver damage TAKE 1 TABLET BY MOUTH EVERY MORNING 90 tablet 1 025 2024 Discontinued QUEtiapine (SEROquel) 100 MG tabletIndication s:MDD (major depressive disorder), recurrent episode, moderate (CMS/HCC) (HCC) Take 1 tablet (100 mg) by mouth at bedtime. 90 tablet 1 025 2024 Discontinued Tresiba FlexTouch 100 UNIT/ML injectionIndicat ions:Type 2 diabetes mellitus with hyperlipidemia (HCC) INJECT 60 UNITS SUBCUTANEOUSLY EVERY MORNING 15 mL 2 025 2024 Discontinued amLODIPine (Norvasc) 5 MG tabletIndication s:Benign essential HTN TAKE 1 TABLET BY MOUTH EVERY MORNING 90 tablet 1 025 2024 Discontinued(R eorder (will not trigger notification to Pharmacy)) Continuous Glucose Sensor (FreeStyle Bettina 3 Sensor) miscIndications: Diabetic polyneuropathy associated with type 2 diabetes mellitus (HCC) 1 each every 15 days. 2 each 025 2024 Discontinued(F ormulary change) Active Problems Problem Noted Date Diagnosed Date Literacy level of illiterate 01/24/2025 Former heavy tobacco smoker 01/24/2025 Diabetic polyneuropathy asso ciated with type 2 diabetes mellitus 04/24/2024 Uncontrolled type 2 diabetes mellitus with hyper glycemia 05/02/2023 MDD (major depressive disord er), recurrent episode, moderate (CMS/HCC) 04/28/2022 Assessment & Plan (06/06/2023 1:11 PM [...] uncomplicated 09/23/19 12 Alcohol dependence 03/13/2004 Hypertension associated with diabetes 03/20/2000 Hypercholesterolemia 03/13/1999 Severe recurrent major depre ssion with psychotic features (CMS/HCC) 03/13/1999 Cigarette nicotine dependence in remission 03/13 Encounters Date Type Department Care Team Description 01/24/2025 9:30 AM EST Office Visit [facility] [address] [place] [address] [phone] Alix Diaz ANP Uncontrolled type 2 diabetes mellitus with hyperglycemia (HCC) (Primary Dx); MDD (major depressive disorder), recurrent episode, moderate (CMS/HCC) (HCC); Primary hypertension; Hypertension associated with diabetes (HCC); Diabetic polyneuropathy associated with type 2 diabetes mellitus (HCC); Literacy level of illiterate; Former heavy tobacco smoker; Hematuria, unspecified type; Encounter for vaccination; Benign essential HTN; Dizziness 01/24/2025 Orders Only [facility] [address] [place] [phone] Alix Diaz ANP 01/24/2025 Results Follow-Up [facility] [address] [place] [phone] Alix Diaz ANP POCT Glucose, POCT Hgb A1c, Urinalysis, Complete, with Reflex to Culture 01/24/2025 Travel 01/24/2025 Refill [facility] [address] [place] [phone] Alix Diaz ANP Type 2 diabetes mellitus with hyperlipidemia (HCC) 01/23/[address] [phone] Alix Diaz ANP chart prep 01/22/[address] [phone] Kylee Madison RN Paperwork/Forms; Prior Authorization 01/19/2025 Refill [facility] [address] [place] [phone] Alix Diaz ANP Alcohol liver damage; MDD (major depressive disorder), recurrent episode, moderate (CMS/HCC) (HCC) 01/16/2025 Refill [facility] [address] [place] [phone] Alix Diaz ANP Type 2 diabetes mellitus without complication, with long-term current use of insulin (HCC); Diabetic polyneuropathy associated with type 2 diabetes mellitus (HCC); Uncontrolled type 2 diabetes mellitus with hyperglycemia (HCC) 12/24/2024 Telephone [facility] [address] [place] [phone] Alix Diaz ANP Lab Orders 12/18/2024 Refill [facility] [address] [place] [address] [phone] Wiley Lacey MD Type 2 diabetes mellitus with hyperlipidemia (HCC) 12/18/2024 Refill [facility] [address] [place] [phone] Alix Diaz ANP Benign essential HTN; Uncontrolled type 2 diabetes mellitus with hyperglycemia (HCC); Gross hematuria; Type 2 diabetes mellitus with hyperlipidemia (HCC) 11/26/2024 Telephone [facility] [address] [place] [address] Alix Diaz ANP Durable Medical Equipment 11/25/2024 Refill [facility] [address] [place] [address] Alix Diaz ANP Vitamin D deficiency 11/05/2024 Refill [facility] [address] [place], [place] [phone] Alix Diaz ANP Uncontrolled type 2 diabetes mellitus with hyperglycemia (CMS/HCC) from Last 3 Months Immunizations Immunization Administration Dates Next Due Hep A, Adult 06/01/2010,07/06/2004,10/13/2003 Hep B, adult 06/01/2010, 8,07/06/2004,02/18,10/13/2003 Influenza, IIV3, injectable 01/21/2010,1 ,01/08/2007,12/28,02/14/2005,02/19/2004 Pfizer Covid-19 Vaccine 12+ 01/24/2025, 4 Pneumococcal Conjugate PCV 20 05/02/2023 Pneumococcal Polysaccharide [...] got money to buy more: Sometimes True 02/12/ 2025 Within the past 12 months,th e food [...] Mass Index 35.15 01/24/2025 9:07 AM EST Plan of Treatment Upcoming Encounters Date Type Department Care Team (Late st Contact Info) Description 01/27/2025 1:30 PM EST Medication Management [facility] [address] [place] [address] Marquita Thompson, PharmD [address] [place] [address] Health Maintenance Due Date Last Done Comments CT Colonography 1965 Colonoscopy 1965 Colorectal Cancer Screening 1965 FIT DNA/Cologuard 1965 FIT 1965 FOBT 1965 HIV Screening 1965 Sigmoidoscopy 1965 Eye Exam 08/29/1975 Hepatitis C Screening 08/29/1983 RSV Patients and Patients Aged 60 years or older (1 - Risk 50-74 years 1-dose series) 08/29/2015 Zoster Vaccines (1 of 2) 08/29/2015 Lipid Panel 12/24/2020 12/25/2019 Influenza Vaccine (#1) 2024 0, 01/01/2008, 01/08/2007, Additional history exists Alcohol/Substance Use Screening 04/24/2025 04/24/2024 Depression Screening 04/24/2025 04/24/2024, 06/06/19 24 SDOH Screening 04/24/2025 04/24/2024 Diabetes: Hemoglobin A1C 04/26/2025 025, 04/24/2024, 12/01/2023, Additional history exists Diabetes: Foot Exam 01/24/2026 01/24/2025, 01/24/2025, 01/24/2025, Additional history exists Diabetes: Urine Protein Screening 01/24/2026 01/24/2025, 12/25/2019, 04/03/2019 Disability Screening 01/24/2026 01/24/2025 Tobacco Screening 01/24/2026 01/24/2025 DTaP/Tdap/Td Vaccines (2 - Td or Tdap) 12/15/2026 12/15/2016, 12/23/2005, 02/19/2004 Hepatitis A Vaccines Completed 06/01/2010, 07/06/2004, 10/13/2003 Hepatitis B Vaccines Completed 06/01/2010, 09/18/2007, 07/06/2004, Additional history exists Pneumococcal Vaccine: 50+ Years Completed 05/02/2023, 01/21/2010 COVID-19 Vaccine Completed 01/24/2025, , 10/27/2020, Additional history exists HIB Vaccines Aged Out No longer eligi ble based on patient's age to complete this topic HPV Vaccines Aged Out No longer eligi ble based on patient's age to complete this topic IPV Vaccines Aged Out No longer eligi ble based on patient's age to complete this topic Meningococcal B Vaccine Aged Out No l onger eligible based on patient's age to complete this topic Meningococcal Vaccine Aged Out No chris verenice eligible based on patient's age to complete this topic RSV under 20 months Aged Out No longe r eligible based on patient's age to complete this topic Rotavirus Vaccines Aged Out No longer eligible based on patient's age to complete this topic Goals Goal Patient Goal Type Associated Problems [...] Plan Patient has diabetic neuropathy No Harriet Womack, RN Patient has diabetic neuropathy Care Plan Patient has diabetic neuropathy No Harriet Womack, bias binding cutter Procedure Name Priority Date/Time Associated Diagnosis Comments POCT GLYCATED HEMOGLOBIN, TOTAL Routine 01/24/2025 9:11 AM EST Uncontrolled type 2 diabetes mellitus with hyperglycemia (HCC) POCT GLUCOSE Routine 01/24/2025 9:10 AM EST Uncontrolled type 2 diabetes mellitus with hyperglycemia (HCC) ALBUMIN, RANDOM URINE W/CREATININE Routine 01/24/2025 12:00 AM EST URINALYSIS, COMPLETE, WITH REFLEX TO CULTURE Routine 01/24/2025 12:00 AM EST Hematuria, unspecified type LIPID PANEL, STANDARD Routine 12/25/2019 8:52 AM EDT from Last 3 Months or Most Recently Relevant to Health Maintenance Results * (ABNORMAL) POCT Hgb A1c (01/24/2025 9:11 AM EST) Hemoglobin A1C 9.8(A) 4.0 - 5.7 % QC Media Lot # [id number] Lot# Expiration Date [id number] Blood 01/24/2025 9:11 AM EST us Alix AGUSTIN POINT OF CARE TEST ENTER/EDIT OR DERABLES Final Result * (ABNORMAL) POCT Glucose (01/24/2025 9:10 AM EST) Glucose Blood, POC 238(A) 60 - 200 mg/dL QC Media Lot # [id number] Lot# Expiration Date [id number] Blood Capillary blood specimen / Unknown 01/24/2025 9:10 AM EST us Alix Diaz ANP POINT OF CARE TEST ENTER/EDIT OR DERABLES Final Result * (ABNORMAL) Urinalysis, Complete, with Reflex to Culture (01/24/2025 12:00 AM EST) Color Urine Yellow [facility] Appearance Urine Clear [facility] PH 5.0 5.0 - 9.0 [facility] Glucose Urine UA 250(A) Negative mg/dL [facility] Urine Blood Negative Negative [facility] Specific [place] - Urine 1.020 1.005 - 1.025 [facility] Urine Protein 100 (2+)(A) Neg-Trace mg/dL [facility] Urine Ketones Trace Negative mg/dL [facility] Nitrite Urine Negative Negative [facility] Leukocyte Esterase Urine Negative Negative [facility] RBC Urine 0-2 0 - 2 /HPF [facility] Urine WBC 0-5 0 - 5 /HPF [facility] Urine Squamous Epithelial Cell 0-2 0 - 2 /HPF [facility] Urine Bacteria None Seen None Seen [facility] Hyaline Casts, Urine 0-2 0 - 2 /LPF [facility] Urine 01/24/2025 01/24/2025 Narrative [facility] - 01/24/2025 2:42 PM EST Urine, Clean Catch Alix Diaz [facility] URINE ORDERABLES Final Resul t [facility] [address] [place] [phone] * (ABNORMAL) Albumin, Random Urine W/Creatinine (01/24/2025 12:00 AM EST) Creatinine, Urine 137.86 mg/dL [facility] Microalbumin Urine 650.0 mg/L [facility] Microalbum Creatinine Ratio Ur 471.4(H) <30 ug/mg cr [facility] Comment:Albumin/Creatinine R atio Reference Ranges: Normal: < 30 ug/mg creatinine Microalbuminuria: 30 - 300 ug/mg creatinineClinical Albuminuria: > 300 ug/mg creatinine 01/24/2025 01/24/2025 [facility] URINE ORDERABLES Final Resul t [facility] [address] [place], [place] [phone] * (ABNORMAL) LIPID PANEL, STANDARD (12/25/2019 8:52 AM EDT) Non-HDL Cholesterol 108 <130 mg/dL (calc) [facility] Comment: For patients with diabetes plus 1 major ASCVD risk factor, treating to a non-HDL-C goal of <100 mg/dL (LDL-C of <70 mg/dL) is considered a therapeutic option. Triglycerides 162(H) <150 mg/dL [facility] HDL Cholesterol 44 > OR = 40 mg/dL [facility] Chol/HDLC Ratio 3.5 <5.0 (calc) [facility] Triglycerides 162(H) <150 mg/dL [facility] Cholesterol, Total 152 <200 mg/dL [facility] LDL Cholesterol 82 mg/dL (calc) [facility] Comment: Reference range: <100 Desirable range <100 mg/dL for primary prevention; <70 mg/dL for patients with CHD or diabetic patients with > or = 2 CHD risk factors. LDL-C is now calculated using the Juan Manuel-Alejandre calculation, which is a validated novel method providing better accuracy than the Friedewald equation in the estimation of LDL-C. Juan Manuel QUINTERO et al. MANISHA. 2013;310(19): 4766-6572 (http://education.Cinetraffic.com/faq/WID351) HDL Cholesterol 44 > OR = 40 mg/dL [facility] Non-HDL Cholesterol 108 <130 mg/dL (calc) [facility] Comment: For patients with diabetes plus 1 major ASCVD risk factor, treating to a non-HDL-C goal of <100 mg/dL (LDL-C of <70 mg/dL) is considered a therapeutic option. LDL Cholesterol 82 mg/dL (calc) [facility] Comment: Reference range: <100 Desirable range <100 mg/dL for primary prevention; <70 mg/dL for patients with CHD or diabetic patients with > or = 2 CHD risk factors. LDL-C is now calculated using the Juan Manuel-Alejandre calculation, which is a validated novel method providing better accuracy than the Friedewald equation in the estimation of LDL-C. Juan Manuel SS et al. MANISHA. 2013;310(14): 7799-3484 (http://education.Cinetraffic.bettercodes.org/faq/UCQ835) Cholesterol, Total 152 <200 mg/dL [facility] Chol/HDLC Ratio 3.5 <5.0 (calc) [facility] 12/25/2019 8:52 AM EDT us Gustabo Serna [facility] BLOOD ORDERABLES Final Res ult [facility] [address] from Last 3 Months or Most Recently Relevant to Health Maintenance Additional Health Concerns Active Problems Noted Date [...] neuropathy 01/24/2025 Patient has diabetic neuropathy 01/24/2025 Insurance [facility] [address] [id number] Care Teams Call Or Contact Centre Coach Relationship Specialty Start Date End Date Alix Diaz ANP [address] [place] [phone] PCP - General Family Medicine 11/11/19
--- OUTSIDE RECORDS SUMMARY | 2025-01-24 21:29 | XMS_ITS | Encounter Summary ---
Author Organization [employer] Address [address] [facility] 7t [place] [address] Care Team Providers Care Game Advisor Name Role Phone Alix Diaz Primary Care Provider [phone] Reason for Visit * Reason Comments Med Refill Encounter Details Date Type Department Care Team ([facility] st Contact Info) Description 01/15/2024 Refill [facility] [address] [place], [place] [phone] Alix Diaz ANP [address] [place] [address] Alcohol liver damage (CMS/HCC) Social History Tobacco [...] Description 01/27/2025 1:30 PM EST Medication Management [facility] [address] [place] [address] Marquita Thompson, PharmD [address] [place] [address] documented as of this encounter Visit Diagnoses Diagnosis Alcohol liver damage Unspecified alcoholic liver damage documented in this encounter Additional Health Concerns Assessment Noted Time PHQ-9 Depression Total Score: 2 06/06/19 24 11:46 AM EDT documented as of this encounter Care Teams Game Advisor Relationship Specialty Start Date End Date Alix Diaz ANP [address] [place] [address] PCP - General Family Medicine 11/11/19 documented as of this encounter
--- OUTSIDE RECORDS SUMMARY | 2025-01-24 21:30 | XMS_ITS | Encounter Summary ---
Author Organization [employer] Address [address] [facility] 7t [place] [address] Care Team Providers Care Rubber Engraver Name Role Phone Alix Diaz Primary Care Provider [phone] Reason for Visit * Reason Comments Med Refill Encounter Details Date Type Department Care Team ([facility] st Contact Info) Description 01/19/2025 Refill [facility] [address] [place], [place] [phone] Alix Diaz ANP [address] [place] [address] Alcohol liver damage; MDD (major depressive disorder), recurrent episode, moderate (CMS/HCC) (HCC) Social History Tobacco Use Types Packs/Day [...] Description 01/27/2025 1:30 PM EST Medication Management [facility] [address] [place] [address] Marquita Thompson, PharmD [address] [place] [address] documented as of this encounter Visit Diagnoses Diagnosis Alcohol liver damage Unspecified alcoholic liver damage MDD (major depressive disorder), recurrent episode, moderate (CMS/HCC) (HCC) documented in this encounter Additional Health Concerns Assessment Noted Time PHQ-9 Depression Total Score: 2 06/06/19 24 11:46 AM EDT documented as of this encounter Care Teams Rubber Engraver Relationship Specialty Start Date End Date Alix Diaz ANP [address] [place] [address] PCP - General Family Medicine 11/11/19 documented as of this encounter
--- OUTSIDE RECORDS SUMMARY | 2025-01-24 21:30 | XMS_ITS | Encounter Summary ---
Author Organization [employer] Address [address] [facility] 7t [place] [address] Care Team Providers Care Supervisor Cartography Name Role Phone Alix Diaz Primary Care Provider [phone] Reason for Visit * Reason Onset Date Comments Durable Medical Equipment 01/16/2025 Encounter Details Date Type Department Care Team (Late st Contact Info) Description 01/16/2025 Refill [facility] [address] [place], [place] [phone] Alix Diaz ANP [address] [place], [place] [phone] Type 2 diabetes mellitus without complication, with long-term current use of insulin (HCC); Diabetic polyneuropathy associated with type 2 diabetes mellitus (HCC); Uncontrolled type 2 diabetes mellitus with hyperglycemia (HCC) Social History Tobacco Use Types Packs/Day [...] encounter Miscellaneous Notes * Telephone Encounter - Harriet Womack RN - 01/24/2025 4:18 PM EST Faxed signed PA for Bettina 3 sensors to [facility], confirmation received. * Telephone Encounter - Harriet Womack RN - 01/16/2025 1:42 PM EST Called pt after receiving additional fax DME request for CGM from [employer] however pthas scripts on file at [facility] for Bettina 3 system. Pt unaware of this, confirms he is using the Bettina 3sensors. Informed him [facility] has also received DME requests for urine testing, pt not aware of this either. Advised him if having any urinary sxs to go to [facility] urgent care. Rescheduled DM short term follow up from 05/2024 to next week. No further questions. Telephone call to [facility] pharmacy, pt has been picking up Freestyle Bettina 3 plus sensors but not since10/2024. That script does not have any refills, and old Bettina 3 sensors discontinued. Will pend new script for 3 Plus sensors and call to see if new PA required. Future Appointments Date Time Provider Department Center 01/24/2025 9:30 AM [facility] documented in this encounter Plan of Treatment Upcoming Encounters Date Type Department Care Team (Late st Contact Info) Description 01/27/2025 1:30 PM EST Medication Management [facility] [address] [place] [address] Marquita Thompson PharmD [address] [place] [address] documented as of this encounter Goals Goal [...] Visit Diagnoses Diagnosis Type 2 diabetes mellitus without complication, with long-term current use of insulin (HCC) Diabetic polyneuropathy associated with type 2 diabetes mellitus (HCC) Uncontrolled type 2 diabetes mellitus with hyperglycemia (HCC) documented in this encounter Additional Health [...] as of this encounter Care Teams Supervisor Cartography Relationship Specialty Start Date End Date Alix Diaz ANP [address] [place] [phone] PCP - General Family Medicine 11/11/19 documented as of this encounter
--- OUTSIDE RECORDS SUMMARY | 2025-01-24 21:30 | XMS_ITS | Encounter Summary ---
Author Organization [facility] Address [address] [facility] [address] [place] [address] Care Team Providers Care Sewing Machine Mechanic Name Role Phone Alix Diaz Primary Care Provider [phone] Encounter Details Date Type Department Care Team (Late st Contact Info) Description 03/22/2022 Orders Only [facility] MEDICINE [address] [place] [id number] Sangita Palomino LPN Social History Tobacco Use [...] 1:30 PM EST Medication Management [facility] MEDICINE [address] [place] [id number] Marquita Thompson, JaydonD [address] [place] [id number] documented as of this encounter Visit Diagnoses Not on filedocumented in this encounter Care Teams Sewing Machine Mechanic Relationship Specialty Start Date End Date Alix Diaz ANP [address] [place] [id number] PCP - General Family Medicine 11/11/19 documented as of this encounter
--- OUTSIDE RECORDS SUMMARY | 2025-01-24 21:30 | XMS_ITS | Encounter Summary ---
Author Organization [employer] Address [address] [facility] [address] [place] [address] Care Team Providers Care Decision Support Manager Name Role Phone Alix Diaz Primary Care Provider [phone] Reason for Visit * Reason Onset Date Comments Appointment Request 06/30/2023 Encounter Details Date Type Department Care Team ([facility] st Contact Info) Description 06/30/2023 Telephone [facility] MEDICINE [address] [place], [place] [phone] Alix Diaz ANP [address] [place], [place] [phone] Appointment Request Social History Tobacco Use Types [...] calling to reschedule Follow-up appt from 06/22 law writer did attempt to reschedule however patient stated need to be in the afternoon documented in this encounter Plan of Treatment Upcoming Encounters Date Type Department Care Team (Late st Contact Info) Description 01/27/2025 1:30 PM EST Medication Management [facility] MEDICINE [address] [place], [place] [phone] Marquita Thompson, PharmD [address] [place] [address] documented as of this encounter Visit Diagnoses Not on filedocumented in this encounter Additional Health Concerns Assessment Noted Time PHQ-9 Depression Total Score: 2 06/06/19 24 11:46 AM EDT documented as of this encounter Care Teams Decision Support Manager Relationship Specialty Start Date End Date Alix Diaz ANP [address] [place], [place] [phone] PCP - General Family Medicine 11/11/19 documented as of this encounter
--- OUTSIDE RECORDS SUMMARY | 2025-01-24 21:30 | XMS_ITS | Encounter Summary ---
Author Organization [facility] Address [address] [facility] 7[address] [place] [address] Care Team Providers Care Wheel Filler Name Role Phone Alix Diaz Primary Care Provider [phone] Encounter Details Date Type Department Care Team (Late st Contact Info) Description 05/06/2024 Orders Only [facility] MEDICINE [address] [place], [place] [phone] Alix iDaz ANP [address] [place], [place] [phone] Diabetic polyneuropathy associated with type 2 diabetes mellitus (CMS/HCC) (Primary Dx) Social History Tobacco Use Types Packs/Day Years [...] Description 01/27/2025 1:30 PM EST Medication Management [facility] MEDICINE [address] [place] [address] Marquita Thompson, JaydonD [address] [place] [address] documented as of this encounter Visit Diagnoses Diagnosis Diabetic polyneuropathy associated with type 2 diabetes mellitus (HCC)- Primary documented in this encounter Additional Health Concerns Assessment Noted Time PHQ-9 Depression Total Score: 2 06/06/19 24 11:46 AM EDT documented as of this encounter Care Teams Wheel Filler Relationship Specialty Start Date End Date Alix Diaz ANP [address] [place] [address] PCP - General Family Medicine 11/11/19 documented as of this encounter
== END 2025-01-24 14:27 | disposition home or self-care (01) ==
LOC: HO.HHCLNP 14:26
PROVIDERS: Visit Provider Nurse Practitioner Primary Care
DX: E11.42 Type 2 diabetes mellitus with diabetic polyneuropathy (principal); R31.9 Hematuria, unspecified
CPT/HCPCS: 81001; 82043; 82570